=== PATIENT | male | born 1970 | race Caucasian/White ===

== ENCOUNTER → 2018-03-17 | Outpatient (CLI) | payer OTHER ==
[~2018-03-17] VITALS: Ht 182.9 cm; Wt 119.3 kg
[~2018-03-17] MED LIST: AMANTADINE100 M1 PO; ATENOLOL 25 MG25 M1 PO; CLONIDINE HCL0.1 MG PO; CYMBALTA30 MG PO; CYMBALTA60 MG PO; GABAPENTIN800 M1 PO; GRALISE600 MG PO; HYDROCODON-ACE1 EAC5 PO; LOSARTAN POTAS100 MG PO; METHADONE HCL 110 M1 PO; METHADONE HCL5 MG PO; NEURONTIN600 MG PO; NEURONTIN800 MG PO; NORCO 10-325 T1 EACH PO; PRILOSEC 20 MG20 MG PO; PRILOSEC20 MG PO; TIZANIDINE PO; XARELTO10 MG PO; ZANAFLEX4 MG PO; gabapentin PO
--- NOTE | ~2018-03-17 | HPC ---
[facility] [address] [address] PAIN MANAGEMENT CONSULTATION Name: PEDRO BRANTLEY Room #: REG CL M..#: [id number] Admission: 03/17/18 Attend Phys: Gage Brewster MD Discharge: Date of : 72 Report #: [id number] THIS REPORT FOR: //name// CC: Umair Brewster DATE OF SERVICE: 03/17/2018 Followup visit for chronic back pain with radiculopathy, post-laminectomy syndrome. History of 4 previous lumbar surgeries. The patient returns today for renewal of medication and a refill of his intrathecal infusion pump. He is on a substantial amount of medication and polypharmacy both orally and an intrathecal infusion pump. We have used his level of function as a guide and I have tried to make sure that we are prescribing his medication with close oversight. I shall admit that I am not comfortable with the higher doses of gabapentin that he is taking in combination with muscle relaxant and opioid, but he is highly tolerant after many years of medication use. He has an intrathecal pump, which also provides combination therapy with clonidine, hydromorphone and fentanyl at fixed rates. If we focus on his function level, I would say that the medication is achieving its goal. He continues to work 5-6 long days at the [employer] in [place], [place] on his feet much of that time. He then cares for his and his family with 5 children, 2 set of twins and a 17-year-old boy. He is actively involved at work and at home. He has had no evidence of overdose despite the high doses of medication provided. I have repeatedly discussed the importance of safeguarding his opioid medications and carefully managing his other medications. CURRENT MEDICATION: Losartan 100 mg daily, Xarelto 10 mg daily, tizanidine 4 mg 2 tablets t.i.d., gabapentin 1200 mg 4 times daily, Cymbalta 60 mg once daily, omeprazole 20 mg daily. ALLERGIES: None. PHYSICAL EXAMINATION: He is an outgoing pleasant 47-year-old. No signs of overmedication. He is wearing his usual flip flops and shorts. He ambulates with a broad-based, but stable gait. He is 6 feet tall, 263 pounds with a BMI of 35.7. At one time, he weighed nearly 400 pounds. He has carefully maintained his weight loss. His blood pressure is 112/53, heart rate 82. His chest is clear. His cardiac rhythm is regular. He has no abdominal pain. Examination of the spine reveals multiple scars from previous surgery with local tenderness. Range of motion is limited. Straight leg raising bilaterally reproduces pain into the legs. [facility] [address] [place] [address] PAIN MANAGEMENT CONSULTATION Name: VALERYPEDRO MG German [id number] Admission: 03/17/18 Attend Phys: Gage Brewster MD Discharge: Date of : 72 Report #: [id number] IMPRESSION: 1. Chronic intractable back pain, post-laminectomy syndrome with radiculopathy. 2. Morbid obesity, status post gastric bypass with weight loss of nearly 200 pounds. 3. Hypertension. 4. History of deep venous thrombosis, on anticoagulation therapy. 5. Management of high risk oral medications. 6. Management of intrathecal infusion pump with reprogramming and refill. PROCEDURE: The intrathecal pump was prepped and the skin plane cleaned. Skin was anesthetized and a 22-gauge non-coring needle advanced in the pump. Old medication removed and discarded by protocol. The pump was refilled with hydromorphone, clonidine and fentanyl and reprogramming session performed. His daily dose will be as follows: Hydromorphone 5.6, clonidine 450 mcg and fentanyl 223 mcg per day. He has a PTM device, which allows for 6 activations a day, increasing his maximum total daily dose of hydromorphone to 7.3. His next refill is scheduled for 04/21/2018, but with PTM, he may go further plan to see him probably around the to the 29 of April. We had a lengthy discussion today about his medications and his polypharmacy. Over time, I would like to reduce these medications. I would like to particularly reduce the polypharmacy component. Hopefully, we could get him off of the muscle relaxants and then taper his gabapentin. He has been very resistant to this in the past, calling frequently about complaints of increased pain at lower doses of gabapentin. He tells me that he is highly dependent upon the gabapentin for the neuropathic component of his pain. We found a much more stable path for the patient when we placed him on methadone. It has shown good benefit for him and he is under an opioid agreement to carefully safeguard this opioid medication, which he tolerates well. I have also agreed that rather than increasing his methadone when he is called that I have allowed him 2 hydrocodone per day over the course of 1-2 months if he feels that he cannot manage his pain effectively at the end of a long day. We will continue to focus on functional goals. I am in frequent contact with the patient. As many of my pump patients do, he has my phone number and I have allowed him to contact me directly rather than go to the Emergency Room if he has a pump crisis. He has avoided the Emergency Room and other medical interventions now for over 1 year, except for one occasion. Avoiding hospital contacts is also considered an important goal for his treatment. [facility] [address] [place] [address] PAIN MANAGEMENT CONSULTATION Name: PEDRO BRANTLEY Room #: REG CLI [facility].#: [id number] Admission: 03/17/18 Attend Phys: Gage Brewster MD Discharge: Date of : 72 Report #: [id number] A followup visit is scheduled in April. Time in consultation greater than 30 minutes plus refill of intrathecal infusion pump. By: [id number] Gage Brewster MD /nt
[2018-03-17 14:29] VITALS: BP 112/53
--- NOTE | 2018-03-17 14:52 | NUR ---
Pain Clinic Assessment: 1. History of Osteoarthritis: N History of Rheumatoid Arthritis: 2. Height: 6 ft. 0 in. 182.9 cm. Weight: 263.0 lb. oz. 119.296 kg. Patient's BMI: 35.7 3. Vital Signs: BP: 112/53 Pulse: 82 Resp: 16 Temp: 02 Sat: 97 ECG Mon: 4. Pain Intensity: 3-4 5. Fall Risk: Dizziness: N Needs help standing or walking: N Fallen in the last 3 months: N Fall risk comments: 6. Patient on Blood Thinner: None 7. History of Hypertension: N 8. Opioid Therapy greater than 6 weeks: Y Opiate Contract Signed: 03/17/18 9. Risk Assessment Tool Provided: Opioid Risk Tool 10. Functional Assessment Tool: 11. Recreational Drug Use: Never Drug Type: Tobacco Use: Former Smoker Tobacco Type: Amount or Packs/day: How Many Years: Alcohol Use: Past use Frequency: Quant:
== END | disposition home or self-care (01) ==
LOC: PAIN 07:40
DX: Z45.1 Encounter for adjustment and management of infusion pump (principal); G89.29 Other chronic pain; Z87.891 Personal history of nicotine dependence; Z79.891 Long term (current) use of opiate analgesic; Z79.899 Other long term (current) drug therapy; Z98.890 Other specified postprocedural states

== ENCOUNTER → 2018-04-17 | Outpatient (CLI) | payer OTHER ==
[~2018-04-17] VITALS: Ht 182.9 cm; Wt 123.1 kg
--- NOTE | ~2018-04-17 | HPC ---
[facility] [place] [address] PAIN MANAGEMENT CONSULTATION Name: PEDRO BRANTLEY Room #: REG CL M..#: [id number] Admission: 04/17/18 Attend Phys: Gage Brewster MD Discharge: Date of : 72 Report #: [id number] THIS REPORT FOR: //name// CC: Umair Brewster DATE OF SERVICE: 04/17/2018 Followup visit for chronic low back pain with radiculopathy, post-laminectomy syndrome. The patient is here today for refill of his intrathecal infusion pump and review of his medications. 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 As noted, he has a large extended family and nuclear family that he is also involved with on a daily basis. He fell on the ice, landing squarely on his back. He sustained a pretty good sized bruise directly overlying his scar. Apparently, he slipped getting into the step-up on his pickup truck. He could not have landed more squarely on his mid back. No other bruise is noted. He has had no significant changes in symptoms other than increased pain across his low back. He has been using ice as recommended by telephone. Intrathecal pump is infusing fixed rates of clonidine, hydromorphone and fentanyl and he has a PTM device, which he is allowed to use 6 times daily. He uses it nearly every opportunity. In addition to that, I have him on methadone for its neuropathic pain features. He is on 10 mg 3 times a day for 30 mg, which he has tolerated well. He has long history of opioid use for chronic pain and he is tolerant to his medications. He denies any sort of side effects, in fact functions at a much higher level with better pain control. His polypharmacy was addressed at last visit. Once again, I discussed with him my concerns when patients are on multiple centrally acting medications, but he tolerates it appears quite well. Dr. Lopez prescribes his gabapentin for him as well as all of his other medications other than the methadone, hydrocodone, tizanidine and Cymbalta, which I utilize for pain management. PHYSICAL EXAMINATION: Today, he is pleasant and outgoing as usual. No signs of overmedication or other illness. His blood pressure is 137/78, heart rate 56, his BMI 36.8. He moves easily from sitting to standing position and walks with a somewhat waddling gait side to side. He is in his usual short pants despite the fact that it is 13 degrees out with a wind chill of around -10. Examination of the back reveals a 12 x 20 bruise surrounding the scar and local tenderness. There is no increasing neuropathic pain. Pump is in the left lower back and does not appear to be affected by this fall. [facility] [address] [place] [address] PAIN MANAGEMENT CONSULTATION Name: PEDRO BRANTLEY Room #: REG JARED Alfredo#: [id number] Admission: 04/17/18 Attend Phys: Gage Brewster MD Discharge: Date of : 72 Report #: [id number] IMPRESSION: 1. Chronic back pain, post-laminectomy syndrome with radiculopathy. 2. Hypertension. 3. History of deep venous thrombosis, on anticoagulation therapy. 4. Hypertension. 5. Management of intrathecal infusion pump with reprogramming and refill today. 6. Management of high risk oral medications with polypharmacy. He is on an opioid agreement. I reviewed his responsibilities of managing his medications and taking them as prescribed. We will continue to follow him closely as his pump is refilled nearly every 6 weeks. PROCEDURE: The pump was refilled and reprogrammed in the usual fashion. Skin prepped with ChloraPrep and anesthetized. A 22-gauge non-coring needle advanced in the pump. Old medication removed and discarded. Pump refilled with hydromorphone 5.6 per day, clonidine 450 mcg per day and fentanyl 223 mcg per day with no change. PTM device will allow for about a 35% increase if he uses all 6 activations. All medications for oral use were renewed to carry him through to his next appointment with specific release dates for his opioids in May. Followup visit planned for pump refill prior to 05/23/2018. By: [id number] Gage Brewster MD /nt
[2018-04-17 11:02] VITALS: BP 137/78
--- NOTE | 2018-04-17 11:19 | NUR ---
Pain Clinic Assessment: 1. History of Osteoarthritis: N History of Rheumatoid Arthritis: 2. Height: 6 ft. 0 in. 182.9 cm. Weight: 271.4 lb. oz. 123.107 kg. Patient's BMI: 36.8 3. Vital Signs: BP: 137/78 Pulse: 56 Resp: 20 Temp: 02 Sat: 100 ECG Mon: 4. Pain Intensity: 7 5. Fall Risk: Dizziness: N Needs help standing or walking: N Fallen in the last 3 months: Y Fall risk comments: 6. Patient on Blood Thinner: XARELTO 7. History of Hypertension: N 8. Opioid Therapy greater than 6 weeks: Y Opiate Contract Signed: 03/17/18 9. Risk Assessment Tool Provided: Opioid Risk Tool 10. Functional Assessment Tool: 49 11. Recreational Drug Use: Never Drug Type: Tobacco Use: Former Smoker Tobacco Type: Amount or Packs/day: How Many Years: Alcohol Use: Past use Frequency: Quant:
== END | disposition home or self-care (01) ==
LOC: PAIN 08:20
DX: Z45.1 Encounter for adjustment and management of infusion pump (principal); M54.16 Radiculopathy, lumbar region; G89.29 Other chronic pain; M96.1 Postlaminectomy syndrome, not elsewhere classified; I10 Essential (primary) hypertension; Z79.891 Long term (current) use of opiate analgesic; Z86.718 Personal history of other venous thrombosis and embolism; Z79.01 Long term (current) use of anticoagulants; Z98.890 Other specified postprocedural states; Z79.899 Other long term (current) drug therapy; Z87.891 Personal history of nicotine dependence

== ENCOUNTER → 2018-05-22 | Outpatient (CLI) | payer OTHER ==
[~2018-05-22] VITALS: Ht 182.9 cm; Wt 126.0 kg
--- NOTE | ~2018-05-22 | HPC ---
[facility] [address] [place] [address] PAIN MANAGEMENT CONSULTATION Name: VALERYPEDRO MG [id number] Admission: 05/22/18 ������������������ Attend Phys: Gage Brewster MD Discharge: ������������������ Date of : 72 Report #: [id number] THIS REPORT FOR: //name// CC: UMAIR Brewster DATE OF SERVICE: 05/22/2018 Followup visit for chronic intractable pain, post-laminectomy syndrome. The patient is in the clinic today for refill of his intrathecal infusion pump. For the first time in the 2 years since I have been helping care for him. He was in tears in my office. I have seen him at times when he has been in the pain crisis. We had to admit him overnight to [facility] when his pain was completely out of control in the fall. He has recently complained of increasing pain. Swelling in his legs was diagnosed as cellulitis and he has been placed on antibiotic medication. He reports that his pain intensity is 8-9/10. He is in constant daily pain. Pain is in his back across the lumbosacral segment, radiates into both legs, which have been swollen related to his cellulitis. 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 He gets some relief with lying down with his legs propped up and he is on a very extensive polypharmacy regimen for chronic pain with extreme tolerance. PHYSICAL EXAMINATION: GENERAL: Today, he is crying. VITAL SIGNS: His blood pressure is 139/86, heart rate 70, respirations 18, O2 sat 100%. He is 6 feet tall, 277 pounds, BMI is 37.7. CHEST: Clear. CARDIAC: Rhythm is regular. MUSCULOSKELETAL: He moves from sitting to standing position and walks with a broad-based gait and antalgic features. He has a scar in his neck from previous cervical surgery, which is tender. He has a broad scar across his lumbosacral segment, which is tender to the touch. He has pain in all the way up to the upper edge of the scar which is at the thoracolumbar junction. There is no redness or inflammation or swelling across his lumbar scar. His pump is in his left lower back and is loose within the subcutaneous tissue. Examination of the legs reveals no evidence of redness or an active cellulitis. The swelling is diminished over the course of the last several days on antibiotics. He has diffuse tenderness throughout the lower extremities involving the L4, L5 and S1 dermatomes. He has positive straight leg raising discomfort through all dermatomes in the sitting and supine position. Sensation is intact. IMPRESSION: [facility] [address] [place] [address] PAIN MANAGEMENT CONSULTATION Name: PEDRO BRANTLEY Room #: REG JARED Alfredo#: [id number] Admission: 05/22/18 ������������������ Attend Phys: Gage Brewster MD Discharge: ������������������ Date of : 72 Report #: [id number] 1. Chronic intractable low back pain, post-laminectomy syndrome. 2. Complex polypharmacy regimen. 3. Cellulitis, lower extremities, under treatment. 4. Hypertension. 5. Management of intrathecal infusion pump with reprogramming and refill. 6. Refill and management of high risk oral medications. The patient has polypharmacy, receives medications from both myself and his primary care physician, Dr. Umair Lopez. PROCEDURE: Refill and reprogramming of intrathecal infusion pump. Skin was prepped with ChloraPrep. Skin anesthetized and a 22-gauge non-coring needle advanced in the intrathecal pump. Old medication was removed and discarded. Pump refilled with hydromorphone and reprogrammed. At his last visit, I increased his pump by 35% with only minimal improvement. His daily dose is hydromorphone 5.6 mg, clonidine 450 mcg and fentanyl 224 mcg per day. He has a PTM device, which will allow him to increase these doses by 31% over a 24-hour period. Next refill is scheduled for 06/26/2018. His oral medications that I provide are baseline methadone 10 mg t.i.d. for neuropathic pain, hydrocodone 10/325 mg 1-2 tablets at the end of the work day for breakthrough pain, tizanidine 4 mg 2 tablets q.i.d. for low back muscle spasm. Dr. Lopez has been prescribing gabapentin that the maximum dose of 4800 mg per day along with Cymbalta 60 mg once a day. All other medications are reconciled from the electronic medical record including omeprazole, Xarelto, oral clonidine, losartan. Recommendation today for flexion and extension in views of the lumbar spine. X-rays were taken and reviewed. There is no listhesis or excessive motion in the lumbar spine, but there is marked levoscoliosis of 34 degrees in the lumbar spine and a compensatory dextrorotational scoliosis in the thoracic. Evidence of laminectomy is noted. Degenerative changes throughout the lumbar spine. I do not have recent MRI and will review records from [facility]. I am at loss of what next steps to take with the patient, we are of maximum medical treatment. I have high doses of medications in his intrathecal pump. He is on oral medications for chronic pain. I have suggested that he pursue surgical consultation with Dr. Karimi or Dr. Amaro and also perhaps with Dr. Gomez, who performed his earlier surgery. I am uncertain about the potential benefits of surgical procedure. Fusion or stabilization of his lumbar spine is not always a pain relieving procedure. Our fear is that despite his significant pain at this time, he could potentially be worse following surgery. He will pursue consultations and I will try to help guide him going forward. ��������������������������������������������� ���������������������������������������� By: ��������������������������������������������� [id number] Gage Brewster MD /nt
[2018-05-22 11:08] VITALS: BP 139/86
--- NOTE | 2018-05-22 11:42 | NUR ---
Pain Clinic Assessment: 1. History of Osteoarthritis: N History of Rheumatoid Arthritis: 2. Height: 6 ft. 0 in. 182.9 cm. Weight: 277.8 lb. oz. 126.010 kg. Patient's BMI: 37.7 3. Vital Signs: BP: 139/86 Pulse: 70 Resp: 18 Temp: 02 Sat: 100 ECG Mon: 4. Pain Intensity: 8-9 5. Fall Risk: Dizziness: N Needs help standing or walking: N Fallen in the last 3 months: N Fall risk comments: 6. Patient on Blood Thinner: XARELTO 7. History of Hypertension: N 8. Opioid Therapy greater than 6 weeks: Y Opiate Contract Signed: 03/17/18 9. Risk Assessment Tool Provided: MOD RISK-6 10. Functional Assessment Tool: / 11. Recreational Drug Use: Never Drug Type: Tobacco Use: Former Smoker Tobacco Type: Amount or Packs/day: How Many Years: Alcohol Use: Past use Frequency: Quant:
== END | disposition home or self-care (01) ==
LOC: PAIN 06:58
DX: Z45.1 Encounter for adjustment and management of infusion pump (principal); M51.36 Other intervertebral disc degeneration, lumbar region; M54.5 Low back pain; G89.29 Other chronic pain; M96.1 Postlaminectomy syndrome, not elsewhere classified; L03.116 Cellulitis of left lower limb; L03.115 Cellulitis of right lower limb; I10 Essential (primary) hypertension; Z79.891 Long term (current) use of opiate analgesic; Z79.01 Long term (current) use of anticoagulants; Z87.891 Personal history of nicotine dependence; Z79.899 Other long term (current) drug therapy; Z98.890 Other specified postprocedural states

== ENCOUNTER → 2018-06-26 | Outpatient (CLI) | payer OTHER ==
[~2018-06-26] VITALS: Ht 182.9 cm; Wt 121.1 kg
[~2018-06-26] MED LIST changes: +ELIQUIS2.5 MG PO
--- NOTE | ~2018-06-26 | HPC ---
[facility] [address] [place] [address] PAIN MANAGEMENT CONSULTATION Name: PEDRO BRANTLEY Room #: REG CL M[facility].#: [id number] Admission: 06/26/18 ������������������ Attend Phys: Gage Brewster MD Discharge: ������������������ Date of : 72 Report #: [id number] THIS REPORT FOR: //name// CC: Umair Brewster DATE OF SERVICE: 06/26/2018 Followup visit for chronic intractable pain, post-laminectomy syndrome. The patient was in the Pain Clinic today for a 25-minute consultation visit, followed by a refill and reprogramming of his intrathecal infusion pump. I also renewed his chronic opioid medications and muscle relaxant, tizanidine. Much discussion today about living day-to-day with chronic pain. 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 He has been using medications to help manage his chronic pain for nearly 20 years. We have continued to provide a medication, but follow up on a very close basis to make sure that his medications are taken with purpose and not haphazardly. We have goals for the use of medication and they include continued work at the [employer] business and continued engagement with his family and younger children. He has a son who has recently graduated from high school, working with him in the business, twins who are finishing their software in high school and two kindergarten aged twins also, so he has number of years of childbearing have impaired. By his own admission, he is driven and feels shameful when he cannot continue at work. He is on his feet all day long and at the end of the day, he is pretty much done. 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 His family motivation is well documented throughout this record. We have discussed counseling. Finding a good counselor, someone he has trust with is difficult and I have served in that role for him in helping bereavement counselor him in measures of nonpharmacologic pain management including cognitive behavioral therapies and stress management. We discussed today a number of different strategies for this. He was given timed event. He was in tears at time talking about his concerns of being able to carry on the family work. Continue to describe his pain as deep, sharp, aching pain. It is not too bad day as a 5, although he periodically contacts me when the pain is severe. He understands that he has maximal medical management. We have no additional medicines that we would suggest for him. In fact, I would like to reduce his baseline medicines, so he has more room for further treatment if something serious should occur. We talked about planning, pacing and prioritizing at his work. He should be [facility] [address] [place] [address] PAIN MANAGEMENT CONSULTATION Name: PEDRO BRANTLEY Room #: REG CL Lizzie.#: [id number] Admission: 06/26/18 ������������������ Attend Phys: Gage Brewster MD Discharge: ������������������ Date of : 72 Report #: [id number] able to acknowledge to himself and to others around him that there are times when he must back away from his heavy work. We have talked about using heat, ice, rest, elevation in order to help with his other additional pains. PHYSICAL EXAMINATION: Today, once again his is emotional. He cried at last visit, cried a couple of times today, concerned about the stresses of his life. His blood pressure is 138/86, heart rate is 86, respirations 16, and O2 sat is 100. He has lost some weight. He was 177 at last visit, 167 today. BMI is now 36.2. His chest is clear. His cardiac rhythm is regular. He is able to independently move from sitting to standing position, walks with a waddling broad-based gait. There are antalgic features. Scar is tender across his low back. He has pain that also extends up into the thoracolumbar junction. His pump is in the left lumbar region, loose within the subcutaneous tissue. Cellulitis has improved within his legs and there is no active redness. Edema, which was present previously, seems to be better. He has diffuse discomfort throughout the legs involving all dermatomes L4 through S1. Bilateral straight leg raising discomfort. IMPRESSION: 1. Chronic low back pain, post-laminectomy syndrome. 2. Chronic stress disorder. He continues to remain engaged in activities of his life, however, should be commended for this. 3. Hypertension. 4. Cellulitis and deep venous thrombosis. He is on anticoagulation therapy. 5. Management of intrathecal infusion pump with reprogramming and refill. 6. Management of high risk oral medications for which we have made some adjustments today. PROCEDURE: Refill and reprogramming of intrathecal infusion pump. Skin was prepped with ChloraPrep and a 22-gauge non-coring needle advanced into the intrathecal pump. I aspirated 4.8 mL of old drug, which was disposed per protocol and the pump was then refilled with 19.5 mL of a combination of clonidine, fentanyl and hydromorphone. Programming remains unchanged. Current daily doses including maximal activations with PTM are 7.3 of hydromorphone, roughly 600 of clonidine, and fentanyl at roughly 300 mcg per day. His next refill is scheduled sometime in late July. His CYDNEY is 09/2019. We likely replace this pump in March to 05/2019. No change was made in his PTM device, which gives him additional 6 doses, which he can activate throughout the day. Medications renewed today under terms of our written opioid agreement are methadone 10 mg 3 times daily. I changed from 5 mg to 10 mg tablets. He has a small amount of hydrocodone 1-2 tablets, which he can take only for severe pain breakthrough. I have done this in order for him to avoid reaching out to the Emergency Room. I have renewed his tizanidine, but reduced the dose from 8 mg 4 times daily to [address] [address] PAIN MANAGEMENT CONSULTATION Name: PEDRO BRANTLEY Room #: REG [facility]..#: [id number] Admission: 06/26/18 ������������������ Attend Phys: Gage Brewster MD Discharge: ������������������ Date of : 72 Report #: [id number] mg 3 times daily, total of 180 tablets. We will continue to try and taper some of these medications as we educate further on chemical coping ways to try to move from that. Followup visit planned in July. ��������������������������������������������� ���������������������������������������� By: ��������������������������������������������� 0942 2221 Gage Brewster MD /nt
[2018-06-26 08:33] VITALS: BP 138/86
--- NOTE | 2018-06-26 08:38 | NUR ---
Pain Clinic Assessment: 1. History of Osteoarthritis: N History of Rheumatoid Arthritis: Not Applicable 2. Height: 6 ft. 0 in. 182.9 cm. Weight: 267.0 lb. oz. 121.111 kg. Patient's BMI: 36.2 3. Vital Signs: BP: 138/86 Pulse: 86 Resp: 16 Temp: 02 Sat: 100 ECG Mon: 4. Pain Intensity: 5 5. Fall Risk: Dizziness: N Needs help standing or walking: N Fallen in the last 3 months: N Fall risk comments: 6. Patient on Blood Thinner: eliquis 7. History of Hypertension: Y 8. Opioid Therapy greater than 6 weeks: Y Opiate Contract Signed: 03/17/18 9. Risk Assessment Tool Provided: MOD RISK-6 10. Functional Assessment Tool: 58/70 11. Recreational Drug Use: Never Drug Type: Tobacco Use: Former Smoker Tobacco Type: Amount or Packs/day: How Many Years: Alcohol Use: Past use Frequency: Quant:
== END | disposition home or self-care (01) ==
LOC: PAIN 06-23 07:01
DX: Z45.1 Encounter for adjustment and management of infusion pump (principal); G89.29 Other chronic pain; M54.5 Low back pain; M96.1 Postlaminectomy syndrome, not elsewhere classified; I10 Essential (primary) hypertension; F43.8 Other reactions to severe stress; Z86.718 Personal history of other venous thrombosis and embolism; Z79.01 Long term (current) use of anticoagulants; Z79.891 Long term (current) use of opiate analgesic; Z87.891 Personal history of nicotine dependence; Z79.899 Other long term (current) drug therapy

== ENCOUNTER → 2018-08-07 | Outpatient (CLI) | payer OTHER ==
[~2018-08-07] VITALS: Ht 175.3 cm; Wt 122.9 kg
[2018-08-07 09:14] VITALS: BP 132/88
--- NOTE | 2018-08-07 09:33 | NUR ---
Pain Clinic Assessment: 1. History of Osteoarthritis: N History of Rheumatoid Arthritis: Not Applicable 2. Height: 5 ft. 9 in. 175.3 cm. Weight: 271.0 lb. oz. 122.925 kg. Patient's BMI: 40.0 3. Vital Signs: BP: 132/88 Pulse: 64 Resp: 20 Temp: 02 Sat: 100 ECG Mon: 4. Pain Intensity: 5 5. Fall Risk: Dizziness: N Needs help standing or walking: N Fallen in the last 3 months: N Fall risk comments: 6. Patient on Blood Thinner: eliquis 7. History of Hypertension: Y 8. Opioid Therapy greater than 6 weeks: Y Opiate Contract Signed: 03/17/18 9. Risk Assessment Tool Provided: MOD RISK-6 10. Functional Assessment Tool: / 11. Recreational Drug Use: Never Drug Type: Tobacco Use: Former Smoker Tobacco Type: Amount or Packs/day: How Many Years: Alcohol Use: Past use Frequency: Quant:
--- NOTE | 2018-08-11 18:13 | HPC ---
[facility] [address] [address] PAIN MANAGEMENT CONSULTATION Name: PEDRO BRANTLEY [id number] Admission: 08/07/18 ������������������ Attend Phys: Gage Brewster MD Discharge: ������������������ Date of : 72 Report #: [id number] THIS REPORT FOR: //name// CC: Umair Brewster DATE OF SERVICE: 08/07/2018 CHIEF COMPLAINT: Followup visit for chronic intractable low back pain, post-laminectomy syndrome. HISTORY OF PRESENT ILLNESS: The patient was in the clinic today for refill of his intrathecal infusion pump. He looks pretty good today. He has had episodes over the last month and a half where he has really been in a lot of pain. Most of this is related to activity. 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 He has significant spinal pathology and I again discussed with him planning, pacing, prioritizing and consideration of a different type of work within the [employer]. No changes in his intrathecal medication. Our plan for today, he receives hydromorphone 5.6 mg per day, clonidine 450 mcg per day and fentanyl 223 mcg a day to allow him to use his PTM device. He can increase this by about 30% by using his PTM. In addition, I provided him with systemic medications, methadone. He is currently dosed at 10 mg 3 times daily in addition to hydrocodone, which he can take 1-2 times only in case of significant increased pain. I worry about opioid hyperalgesia of course. He has other co-analgesics including Cymbalta 60 mg daily, tizanidine 4 mg 2 tablets up to 4 times a day and gabapentin at high dose prescribed by Dr. Lopez. Despite this substantial centrally acting medication, he is able to function well on a daily basis, although he continually request additional medication. We have talked about the significant tolerance he has developed to the current medications and the lack of efficacy at any higher doses. PHYSICAL EXAMINATION: GENERAL: Today, he is well dressed, well groomed, upbeat and positive. Pain score 5/10. VITAL SIGNS: Blood pressure 132/88, heart rate 64, respirations 20, O2 sat 100, 5 feet 9 inches, 271 pounds, BMI of 40. MUSCULOSKELETAL: He moves from sitting to standing position, walks with his broad-based gait. He has pain and tenderness across his low back with limited range of motion. He complains of some pain in his legs. There is minimal edema bilaterally. As usual, he is wearing shorts and sandals. [place] [id number] PAIN MANAGEMENT CONSULTATION Name: PEDRO BRANTLEY Room #: REG [facility]#: [id number] Admission: 08/07/18 ������������������ Attend Phys: Gage Brewster MD Discharge: ������������������ Date of : 72 Report #: [id number] IMPRESSION: 1. Chronic low back pain, post-laminectomy syndrome. 2. Chronic stress disorder. 3. Hypertension. 4. Cellulitis, improved. 5. Management of intrathecal infusion pump with reprogramming refilled. 6. Management of oral medications under terms of written opioid agreement. We have discussed his responsibilities and safeguarding his medications. No current side effects need addressing. PROCEDURE: Skin was prepped with ChloraPrep and 22-gauge non-coring needle advanced in the pump. Old medication removed and discarded per protocol. Pump refilled then and reprogrammed at doses mentioned earlier in this dictation. I then represcribed for him medications, which will carry him through to his next pump refill including hydrocodone 10/325, #60 tablets. He has all other medications available at home for release prescriptions. Followup visit is planned in 09/2018. ��������������������������������������������� <ELECTRONICALLY SIGNED> ���������������������������������������� By: Gage Brewster MD ��������������������������������������������� 08/11/18 1813 1834 [id number] Gage Brewster MD /nt
== END | disposition home or self-care (01) ==
LOC: PAIN 06:40
DX: Z45.1 Encounter for adjustment and management of infusion pump (principal); M54.5 Low back pain; G89.29 Other chronic pain; M96.1 Postlaminectomy syndrome, not elsewhere classified; F43.8 Other reactions to severe stress; I10 Essential (primary) hypertension; Z79.891 Long term (current) use of opiate analgesic; Z87.891 Personal history of nicotine dependence; Z79.01 Long term (current) use of anticoagulants; Z79.899 Other long term (current) drug therapy

== ENCOUNTER → 2018-09-08 | Outpatient (CLI) | payer OTHER ==
[~2018-09-08] VITALS: Ht 175.3 cm; Wt 122.0 kg
[2018-09-08 11:37] VITALS: BP 101/71
== END | disposition home or self-care (01) ==
LOC: PAIN 11:06
DX: Z45.1 Encounter for adjustment and management of infusion pump (principal); M54.9 Dorsalgia, unspecified; G89.29 Other chronic pain; M96.1 Postlaminectomy syndrome, not elsewhere classified; I10 Essential (primary) hypertension; Z79.891 Long term (current) use of opiate analgesic; Z87.891 Personal history of nicotine dependence; Z79.01 Long term (current) use of anticoagulants; Z98.890 Other specified postprocedural states

== ENCOUNTER → 2018-09-25 | Outpatient (CLI) | payer OTHER ==
[~2018-09-25] VITALS: Ht 175.3 cm; Wt 125.2 kg
[2018-09-25 08:41] VITALS: BP 142/76
--- NOTE | 2018-09-25 08:44 | NUR ---
Pain Clinic Assessment: 1. History of Osteoarthritis: Not Applicable History of Rheumatoid Arthritis: Not Applicable 2. Height: 5 ft. 9 in. 175.3 cm. Weight: 276.0 lb. oz. 125.193 kg. Patient's BMI: 40.7 3. Vital Signs: BP: 142/76 Pulse: 63 Resp: 18 Temp: 02 Sat: 100 ECG Mon: 4. Pain Intensity: 4-5 BACK 6-7 HEAD 5. Fall Risk: Dizziness: N Needs help standing or walking: N Fallen in the last 3 months: N Fall risk comments: 6. Patient on Blood Thinner: mouna 7. History of Hypertension: Y 8. Opioid Therapy greater than 6 weeks: Y Opiate Contract Signed: 03/17/18 9. Risk Assessment Tool Provided: MOD RISK-6 10. Functional Assessment Tool: 58/70 11. Recreational Drug Use: Never Drug Type: Tobacco Use: Former Smoker Tobacco Type: Amount or Packs/day: How Many Years: Alcohol Use: Past use Frequency: Quant:
--- NOTE | 2018-09-26 07:46 | HPC ---
[facility] [address] [place] [address] PAIN MANAGEMENT CONSULTATION Name: PEDRO BRANTLEY [facility] [id number] Admission: 09/25/18 ������������������ Attend Phys: Veronica Shafer Discharge: ������������������ Date of : 72 Report #: [id number] THIS REPORT FOR: //name// CC: Veronica Brewster MD DATE OF SERVICE: 09/25/2018 CHIEF COMPLAINT:. Chronic intractable back pain, post-laminectomy syndrome. HISTORY OF PRESENT ILLNESS: This is a followup visit for this 47-year-old gentleman for refill of his medications that he uses to help treat his ongoing intractable back pain. He also does have an intrathecal pump that he uses to manage his pain as well. He is in need of his methadone and hydrocodone refill today prior to having his pump filled in the next few weeks. The patient tells me that his pain score today is a 4/5 in his back and a 6/7 in his head. He feels like he has a headache from the occipital area that radiates up to the top of his head to his temporal area. He tells me he usually does not get headaches, so he is unsure if it is back that is hurting or if it is the weather changes. 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 His medications are very helpful as well as elevating his legs as the day ends. The patient tells me he has no problems with constipation as long as he uses some ozph-zmu-iswbtlj remedies, and he does not have any feelings of overmedication feeling in his thought process. He tells me his PTM for his intrathecal pump alarm date says 10/14, and we will need to make an appointment for that as well. He does continue to have some right ankle swelling from a recent fall that he had at work that has been ongoing now for several weeks. ALLERGIES: No known drug allergies. CURRENT LIST OF MEDICATIONS: Hydrocodone 10/325 two to three times a day p.r.n., gabapentin 800 mg 4 times a day, tizanidine 4 mg 1-2 tablets p.r.n. daily, methadone 10 mg 3 times a day, Eliquis, Cymbalta 60 mg daily, losartan, clonidine, Prilosec PQRS: 1. 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 He denies [place] [address] PAIN MANAGEMENT CONSULTATION Name: PEDRO BRANTLEY Room #: REG [facility].#: [id number] Admission: 09/25/18 ������������������ Attend Phys: Veronica Shafer Discharge: ������������������ Date of : 72 Report #: [id number] 2. Height is 5 feet 9 inches, weight is 276, BMI is 40. 3. Vital signs, 142/76, pulse is 63, respirations 18, oxygen sat is 100. 4. Pain score in his back is 4-5 today, head is 6-7. 5. Fall risk. Denies dizziness. Does not need help of walking or standing. He has fallen in the last 3 months. 6. The patient is on Eliquis and also takes medicines for high blood pressure. 7. Opioid therapy is greater than 6 weeks; therefore, an opiate signed contract is on the chart. Risk assessment tool is moderate and functional assessment 58/70. 8. Recreational drug use, denies. Not a former smoker and does not use alcohol. According to the prescription monitoring system, the patient has been filling his methadone, sporadically filling prescriptions from March most recently, but has been filling his hydrocodone on a timely fashion. His last prescription for methadone was 08/28 and before that was 07/31. We discussed trying to keep him on track every 30 days, filling his long-acting and short-acting medications and is taking them in a timely fashion. PHYSICAL EXAMINATION: GENERAL: This is a well gentleman, 47-year-old that appears his stated age, placing his current pain score today at 4/5 of his lumbar spine. He is alert and orientated. HEENT: Normocephalic, atraumatic. Extraocular eye muscles are intact. Mucous membranes are moist. MUSCULOSKELETAL: He moves from sitting to standing position, walks with an antalgic gait. He has tenderness across his low back with limited range of motion, complains of some pain in his bilateral legs. He has edema noted in his right ankle and slight redness in the ankle area. IMPRESSION: 1. Chronic intractable back pain, post-laminectomy syndrome. 2. Hypertension. 3. Cellulitis of the right lower extremity. 4. Management of intrathecal pump with PTM use. We reviewed the fact that opiate medications are being used to provide analgesia adequate to support activities of daily living, not attempting to achieve a specific pain score on the 0-10 Visual Analog Scale. The current opiate medications are providing sufficient analgesia to allow the patient to participate in activities of daily living. The patient is not exhibiting any aberrant behavior suggestive of drug diversion. The patient is not having any adverse reactions to medications. The patient is not suffering from daytime somnolence or mental acuity changes. The patient is managing opiate-induced constipation with appropriate sxql-zex-zkzetgm agents and dietary considerations. The patient was counseled on concern for caution with operating a motor vehicle while using opiate medications. [facility] [address] [place] [address] PAIN MANAGEMENT CONSULTATION Name: PEDRO BRANTLEY [facility] [id number] Admission: 09/25/18 ������������������ Attend Phys: Veronica Shafer Discharge: ������������������ Date of : 72 Report #: [id number] A physical exam was performed and the patient's functional status was evaluated. All patients with back pain were advised against the bed rest greater than 4 days and were advised to return to normal activities. Pain score assessment was noted and the treatment plan was reviewed with the patient. All current medications, both prescribed and OTC were reviewed and reconciled on the electronic medical record. Tobacco screening was accomplished and smoking cessation was advised when indicated. BMI was noted and diet/exercise modification was recommended for all patients following outside normal parameters. I reviewed with the patient today their responsibilities to safeguard prescription medications, reviewed their responsibility to utilize medications only as prescribed by the physician. They are to seek and receive pain medications only from 1 physician group ([facility]). They are to use 1 pharmacy and keep the clinic informed if they change pharmacies. Their responsibilities include making followup visits in a timely fashion and to avoid abrupt discontinuation of medication usage. Their responsibilities further include bringing their medications (bottles from the pharmacy with residual pills) to the visit for possible confirmation of pill counts and the patient understands it is their responsibility to submit to random drug screens to ensure both that the medications prescribed are present, and that no other controlled substances are present. All prescriptions provided today were generated electronically. PLAN: 1. We discussed treatment options with the patient today. We explained the importance along with Dr. Brewstre who was present for significant amount of time of the visit today of taking his methadone on a schedule to keep his blood level at a constant level to help reduce some of his pain and to fill his prescriptions on a monthly basis. If he is finding he is not needing 3 methadone a day, then we will decrease the amount of pills that he does take. He is instructed to bring his bottles with him at the next appointment. 2. Script was given today for methadone 10 mg #90 and hydrocodone 10/325, #60 as well as tizanidine 4 mg 1-2 tablets t.i.d., #180 with 1 refill and Cymbalta 60 mg, #30 with one additional refill. 3. The patient continues to have right ankle pain and swelling. Does have slight cellulitis in the right lower extremity as well. We will have him have a right ankle series x-ray done today to see if anything is broken since his recent fall. 4. The patient is seen with Dr. Brewster who collaborated care today. The patient will return in about one month for his intrathecal pump refill. ��������������������������������������������� <ELECTRONICALLY SIGNED> ���������������������������������������� By: Veronica Shafer ��������������������������������������������� 09/26/18 0746 0957 [id number] Veronica Shafer /zen
== END ==
LOC: PAIN 08:26
DX: M19.071 Primary osteoarthritis, right ankle and foot (principal); M77.31 Calcaneal spur, right foot; M76.62 Achilles tendinitis, left leg; M25.471 Effusion, right ankle; G89.4 Chronic pain syndrome; M96.1 Postlaminectomy syndrome, not elsewhere classified; I10 Essential (primary) hypertension; L03.115 Cellulitis of right lower limb; Z79.899 Other long term (current) drug therapy; W19.XXXA Unspecified fall, initial encounter

== ENCOUNTER → 2018-10-13 | Outpatient (CLI) | payer OTHER ==
[~2018-10-13] VITALS: Ht 175.3 cm; Wt 123.7 kg
--- NOTE | ~2018-10-13 | HPC ---
[facility] [place] [address] PAIN MANAGEMENT CONSULTATION Name: PEDRO BRANTLEY Room #: REG CL Lizzie.#: [id number] Admission: 10/13/18 ������������������ Attend Phys: Gage Brewster MD Discharge: ������������������ Date of : 72 Report #: [id number] THIS REPORT FOR: //name// CC: HIRAL Brewster DATE OF SERVICE: 10/13/2018 Followup visit for chronic low back pain, post-laminectomy syndrome. Management of high risk polypharmacy medications as well as intrathecal infusion pump. The patient returns to pain clinic today for refill of his intrathecal infusion pump and renewal of some of his medication. He has an MME of oral medications of 140 based upon 3 methadone tablets per day, 10 mg for a total of 30. This equals an MME of 120 and hydrocodone 10/325 one to two tablets also taken generally during the day for severe pain. He is also on high dose gabapentin 4800 mg per day prescribed by Dr. Lopez. He is on Cymbalta 60 mg daily and tizanidine 4-8 mg 3-4 times daily. This is a significant amount of oral medication and I have discussed at length with him today. I would like him to taper and we continue to work on this. I have also stressed with him the importance of safeguarding his medicines and how we must make sure that all these medicines are accounted for carefully at each visit, came to my awareness today after looking at the [facility] prescription drug monitoring program that he has been filling up multiple pharmacies. I have told him that this is part of his opioid agreement to do fill all of his medications at the same pharmacy. He has agreed to do so. He complains today of pain in his back an average of 6/10. We have had a number of concerns, however, also about his feet. I ordered plain film x-rays of his feet and it shows that there is significant arthrosis throughout both feet. While the mortise of the bone appears to be intact, he has had some swelling and it is possible there could be a stress fracture. I had ordered an MRI, but he did not obtain the study despite multiple efforts and phone calls. He is young at 47 years of age. I am concerned obviously by the degree of degenerative changes I see in his feet as well as by the medication that he is taking orally. Lengthy discussion occurred today about taking care of himself. He continues to chew tobacco. I have tried to get him to stop. Discussed strategies to do so today. He needs to lose some weight. His BMI is 40. This also has been discussed at length, but weight loss is a challenge. 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 Without [facility] [address] [place] [address] PAIN MANAGEMENT CONSULTATION Name: PEDRO BRANTLEY Room #: REG CLI Juni#: [id number] Admission: 10/13/18 ������������������ Attend Phys: Gage Brewster MD Discharge: ������������������ Date of : 72 Report #: [id number] medication, he reports that he does not feel that he could work at all. The pain in his legs and the neuropathy is so severe that he says that he would get out of bed. I have not even mentioned to his intrathecal pump !. I managed the pump and he is here today for refill. The pump contains 3 medications; hydromorphone and fentanyl, which should be helpful for the PTM device as well as clonidine. His daily dose continuous is hydromorphone 5.5 mg, clonidine 450 mcg and fentanyl 223 mcg per day. He uses his PTM frequently. PHYSICAL EXAMINATION: GENERAL: He is wide awake, alert, oriented and pleasant. Remarkable given the amount of medication that he takes. VITAL SIGNS: His pupils are equal, round and reactive to light. His EOMs are intact. Mucous membranes are moist. CHEST: Clear to auscultation. CARDIAC: Rhythm is regular. There is no murmur. ABDOMEN: Soft. Nontender. There is no organomegaly. BACK: Examination of the spine reveals scar from previous surgery and his pump is in the left lower back just below the iliac crest. It is quite loose in his redundant skin. It is nontender. He has bilateral straight leg raising discomfort. He has decreased sensation throughout the lower extremities to touch. Both feet are markedly deformed. There is some diffuse tenderness. He has bilateral valgus deformity. Spurring is noted along the Achilles bilaterally. IMPRESSION: 1. Chronic intractable pain syndrome, multiple pain generators including post-laminectomy syndrome with radiculopathy, severe arthritis of the feet bilaterally and neuropathy. 2. Hypertension. 3. Management of intrathecal pump with refill reprogramming. 4. Management of high risk medications under terms of an opioid agreement. I reviewed his medications from the [facility] PDMP. He last filled his hydrocodone and methadone on 09/25/2018. I will write for 1 month. I have also renewed his tizanidine and encourage him to taper his dose. He will safeguard his medications. He is grateful for the pain relief and improvement in day-to-day function that he has and he denies any side effects. PROCEDURE: Refill and reprogramming intrathecal infusion pump. Skin prepped with ChloraPrep. A 22-gauge non-coring needle advanced into the pump. Old medication removed and discarded. The amount retrieved was as expected and was discarded per protocol. Pump was then refilled with a combination of hydromorphone, clonidine and fentanyl. Reprogramming session [facility] [address] [place] [address] PAIN MANAGEMENT CONSULTATION Name: PEDRO BRANTLEY [facility]#: [id number] Admission: 10/13/18 ������������������ Attend Phys: Gage Brewster MD Discharge: ������������������ Date of : 72 Report #: [id number] performed without increase. His next refill is scheduled in about 40 days. Followup visit planned in the pain clinic in 40 days. ��������������������������������������������� ���������������������������������������� By: ��������������������������������������������� 1307 [id number] Gage Brewster MD /nt
[2018-10-13 09:58] VITALS: BP 108/72
--- NOTE | 2018-10-13 10:23 | NUR ---
Pain Clinic Assessment: 1. History of Osteoarthritis: Not Applicable History of Rheumatoid Arthritis: Not Applicable 2. Height: 5 ft. 9 in. 175.3 cm. Weight: 272.6 lb. oz. 123.651 kg. Patient's BMI: 40.2 3. Vital Signs: BP: 108/72 Pulse: 65 Resp: 20 Temp: 02 Sat: 100 ECG Mon: 4. Pain Intensity: 6 avg 5. Fall Risk: Dizziness: N Needs help standing or walking: N Fallen in the last 3 months: N Fall risk comments: 6. Patient on Blood Thinner: RUT 7. History of Hypertension: Y 8. Opioid Therapy greater than 6 weeks: Y Opiate Contract Signed: 03/17/18 9. Risk Assessment Tool Provided: MOD RISK-6 10. Functional Assessment Tool: 11. Recreational Drug Use: Never Drug Type: Tobacco Use: Former Smoker Tobacco Type: Amount or Packs/day: How Many Years: Alcohol Use: Past use Frequency: Quant:
== END | disposition home or self-care (01) ==
LOC: PAIN 06:51
DX: Z45.1 Encounter for adjustment and management of infusion pump (principal); G89.4 Chronic pain syndrome; M54.16 Radiculopathy, lumbar region; M96.1 Postlaminectomy syndrome, not elsewhere classified; M19.071 Primary osteoarthritis, right ankle and foot; M19.072 Primary osteoarthritis, left ankle and foot; I10 Essential (primary) hypertension; Z79.891 Long term (current) use of opiate analgesic; Z98.890 Other specified postprocedural states; Z79.899 Other long term (current) drug therapy; Z79.01 Long term (current) use of anticoagulants

== ENCOUNTER → 2018-11-13 | Outpatient (CLI) | payer OTHER ==
[~2018-11-13] VITALS: Ht 182.9 cm; Wt 123.4 kg
[2018-11-13 13:36] VITALS: BP 130/70
--- NOTE | 2018-11-13 13:39 | NUR ---
Pain Clinic Assessment: 1. History of Osteoarthritis: Not Applicable History of Rheumatoid Arthritis: Not Applicable 2. Height: 6 ft. 0 in. 182.9 cm. Weight: 272.0 lb. oz. 123.379 kg. Patient's BMI: 36.9 3. Vital Signs: BP: 130/70 Pulse: 80 Resp: 16 Temp: 02 Sat: 98 ECG Mon: 4. Pain Intensity: 4-5 5. Fall Risk: Dizziness: N Needs help standing or walking: N Fallen in the last 3 months: N Fall risk comments: 6. Patient on Blood Thinner: CLAUDINEQUIS 7. History of Hypertension: Y 8. Opioid Therapy greater than 6 weeks: Y Opiate Contract Signed: 03/17/18 9. Risk Assessment Tool Provided: MOD RISK-6 10. Functional Assessment Tool: 11. Recreational Drug Use: Never Drug Type: Tobacco Use: Former Smoker Tobacco Type: Amount or Packs/day: How Many Years: Alcohol Use: Past use Frequency: Quant:
--- NOTE | 2018-11-17 12:57 | HPC ---
[facility] [address] [place] [address] PAIN MANAGEMENT CONSULTATION Name: PHILPEDRO SHERIFF [id number] Admission: 11/13/18 Attend Phys: Veronica Shafer Discharge: Date of : 72 Report #: [id number] THIS REPORT FOR: //name// CC: Veronica Block Jessica DATE OF SERVICE: 11/13/2018 CHIEF COMPLAINT: Chronic low back pain, post-laminectomy syndrome. HISTORY OF PRESENT ILLNESS: This is a 48-year-old gentleman who returns to the pain clinic today for a refill of his medications that he uses to help treat along with his intrathecal pump for his chronic low back pain from multiple back surgeries. He reports today that his pain score is a 4-5/10. He is needing refills of his medicine prior to his intrathecal pump refill next week. His pain is located in his lumbar spine and radiates down both of his legs and especially into his right ankle. It is a deep, dull, sharp, stabbing pain worse when he is walking and working and lifting, but better with his medications, and at the end of the day when he can elevate his legs. He denies any problems with constipation today or daytime sleepiness. He explains to me that he did fall asleep riding home from work the other day, but it was because he was exhausted from physically working so hard and not because of his medications. ALLERGIES: No known drug allergies. CURRENT LIST OF MEDICATIONS: Methadone 10 mg t.i.d., Cymbalta 60 mg daily, Zanaflex 4 mg 1-2 tablets 3 times a day, hydrocodone 10/325 b.i.d., gabapentin 800 mg 4 times a day, Eliquis 2.5 mg b.i.d., losartan 100 mg daily, clonidine 0.1 mg daily, and omeprazole 20 mg daily. PQRS: 1. He has osteoarthritis in his ankle and his lumbar spine. Denies any rheumatoid arthritis. 2. Height is 6 feet, weight is 272, BMI is 36. 3. Vital signs: Blood pressure 130/70, pulse is 80, respirations 16, oxygen sat is 98. 4. Pain score 4-5. 5. Denies dizziness, does not need help walking or standing, has not fallen in the last 3 months. 6. He is on Eliquis and also takes medicine for hypertension. 7. Opioid therapy is greater than 6 weeks; therefore, an opioid signed contract is on the chart. 8. Risk assessment is moderate. Functional assessment is 58/70. 9. Recreational drug use, he denies. He does chew tobacco and does not smoke. He has been encouraged to quit chewing tobacco and does not drink alcohol. [address] [address] PAIN MANAGEMENT CONSULTATION Name: PEDRO BRANTLEY Room #: REG CLI Juni#: [id number] Admission: 11/13/18 Attend Phys: Veronica Shafer Discharge: Date of : 72 Report #: [id number] According to the prescription monitoring system, the patient is not due to fill his medication of methadone until the . He is due for his hydrocodone today. PHYSICAL EXAMINATION: GENERAL: This is alert and orientated, 48-year-old gentleman, who appears his stated age, placing his current pain score today at 4-5. HEENT: Pupils are equal and reactive to light. Mucous membranes are moist. His EOMs are intact. ABDOMEN: Soft, nontender. BACK: He has diffuse tenderness. EXTREMITIES: His both feet are deformed. He has significant right ankle pain. Sprain is also noted on his Achilles bilaterally. He has an intrathecal pump in his left lower back just above his iliac crest. His lower extremity strength judged to be 5/5 in all major muscle groups. IMPRESSION: 1. Chronic intractable back pain, post-laminectomy syndrome. 2. Hypertension. 3. Management of intrathecal pump. 4. Management of high-risk medications and polypharmacy under terms of written opioid agreement. 5. Severe arthritis of his feet bilaterally. 6. Neuropathy. We reviewed the fact that opiate medications are being used to provide analgesia adequate to support activities of daily living, not attempting to achieve a specific pain score on the 0-10 Visual Analog Scale. The current opiate medications are providing sufficient analgesia to allow the patient to participate in activities of daily living. The patient is not exhibiting any aberrant behavior suggestive of drug diversion. The patient is not having any adverse reactions to medications. The patient is not suffering from daytime somnolence or mental acuity changes. The patient is managing opiate-induced constipation with appropriate [id number] agents and dietary considerations. The patient was counseled on concern for caution with operating a motor vehicle while using opiate medications. A physical exam was performed and the patient's functional status was evaluated. All patients with back pain were advised against the bed rest greater than 4 days and were advised to return to normal activities. Pain score assessment was noted and the treatment plan was reviewed with the patient. All current medications, both prescribed and OTC were reviewed and reconciled on the electronic medical record. Tobacco screening was accomplished and smoking cessation was advised when indicated. BMI was noted and diet/exercise modification was recommended for all patients following outside normal parameters. [address] [address] PAIN MANAGEMENT CONSULTATION Name: PEDRO BRANTLEY Room #: REG [facility]#: [id number] Admission: 11/13/18 Attend Phys: Veronica Shafer Discharge: Date of : 72 Report #: [id number] I reviewed with the patient today their responsibilities to safeguard prescription medications, reviewed their responsibility to utilize medications only as prescribed by the physician. They are to seek and receive pain medications only from 1 physician group ( [facility]). They are to use 1 pharmacy and keep the clinic informed if they change pharmacies. Their responsibilities include making followup visits in a timely fashion and to avoid abrupt discontinuation of medication usage. Their responsibilities further include bringing their medications (bottles from the pharmacy with residual pills) to the visit for possible confirmation of pill counts and the patient understands it is their responsibility to submit to random drug screens to ensure both that the medications prescribed are present, and that no other controlled substances are present. All prescriptions provided today were generated electronically. PLAN: 1. We discussed treatment options with the patient today. I explained to the patient that we are unable to release his methadone. It is still too early. The patient verbalizes understanding. Scripts given for methadone 10 mg t.i.d., #90 to release after 11/26/2018. Scripts given for his hydrocodone 10/325 b.i.d. to fill today. 2. We discussed his tizanidine. He explained to me that he takes 8 tablets a day. I explained again, which we have had multiple discussions that he is not allowed to take that much of his muscle relaxer, 1-2 tablets up to 6 tablets max a day. He verbalizes understanding. He said he will try to decrease this medicine again, quantity of 180 given with 1 additional refill as well as his Cymbalta 60 mg, #30 with 1 additional refill. 3. The patient explains us that he was working very hard prior to the Day weekend. 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 Dr. Gage Brewster came in for part of this discussion where we discussed with the patient planning, pacing, and prioritizing for his health, he needs to plan out his day of work pace himself, so he is not so exhausted. This may need trying to do some of his jobs while sitting down, which he has some pain relief rather than standing all day, so that at the end of the day, he is not trying to play catch up with his pain and prioritizing what he could do versus what other people in his business can do. The patient thought about this. 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 The patient verbalizes understanding and will think about and try to change his attitudes at work that he needs to have others help him with some of his responsibilities. 4. The patient will return next week for his intrathecal pump refill. The appointment was adjusted based on his data with PTM trying to get as long out of his refills as possible. 5. The patient is seen in collaboration today [address] [address] PAIN MANAGEMENT CONSULTATION Name: PEDRO BRANTLEY Room #: REG CL Juni#: [id number] Admission: 11/13/18 Attend Phys: Veronica Shafer Discharge: Date of : 72 Report #: [id number] Gage Brewster who, as we said, was here present for part of the discussion today. <ELECTRONICALLY SIGNED> By: Veronica Shafer 11/17/18 [id number] Veronica Shafer /zen
== END ==
LOC: PAIN 09:31
DX: M54.5 Low back pain (principal); G89.4 Chronic pain syndrome; M96.1 Postlaminectomy syndrome, not elsewhere classified; I10 Essential (primary) hypertension; M19.072 Primary osteoarthritis, left ankle and foot; M19.071 Primary osteoarthritis, right ankle and foot; G62.9 Polyneuropathy, unspecified; Z79.891 Long term (current) use of opiate analgesic; Z79.899 Other long term (current) drug therapy

== ENCOUNTER → 2018-11-20 | Outpatient (CLI) | payer OTHER ==
[~2018-11-20] VITALS: Ht 182.9 cm; Wt 121.3 kg
[2018-11-20 09:51] VITALS: BP 123/86
--- NOTE | 2018-11-20 09:55 | NUR ---
Pain Clinic Assessment: 1. History of Osteoarthritis: Not Applicable History of Rheumatoid Arthritis: Not Applicable 2. Height: 6 ft. 0 in. 182.9 cm. Weight: 267.4 lb. oz. 121.292 kg. Patient's BMI: 36.3 3. Vital Signs: BP: 123/86 Pulse: 67 Resp: 16 Temp: 02 Sat: 100 ECG Mon: 4. Pain Intensity: 4 5. Fall Risk: Dizziness: N Needs help standing or walking: N Fallen in the last 3 months: N Fall risk comments: 6. Patient on Blood Thinner: ELIQUIS 7. History of Hypertension: Y 8. Opioid Therapy greater than 6 weeks: Y Opiate Contract Signed: 03/17/18 9. Risk Assessment Tool Provided: MOD RISK-6 10. Functional Assessment Tool: 58/ 11. Recreational Drug Use: Never Drug Type: Tobacco Use: Former Smoker Tobacco Type: Amount or Packs/day: How Many Years: Alcohol Use: Past use Frequency: Quant:
== END | disposition home or self-care (01) ==
LOC: PAIN 09:09
DX: Z45.1 Encounter for adjustment and management of infusion pump (principal); G89.29 Other chronic pain; Z79.899 Other long term (current) drug therapy; Z79.891 Long term (current) use of opiate analgesic; Z79.01 Long term (current) use of anticoagulants

== ENCOUNTER → 2018-12-25 | Outpatient (CLI) | payer OTHER ==
[~2018-12-25] VITALS: Ht 185.4 cm; Wt 106.6 kg
--- NOTE | ~2018-12-25 | HPC ---
[facility] [address] [place] [address] PAIN MANAGEMENT CONSULTATION Name: PEDRO BRANTLEY [facility] [id number] Admission: 12/25/18 Attend Phys: Gage Brewster MD Discharge: Date of : 72 Report #: [id number] THIS REPORT FOR: //name// CC: Umair Brewster DATE OF SERVICE: 12/25/2018 Followup visit for management of intrathecal infusion pump and oral medication for chronic intractable pain. SUBJECTIVE: The patient returns to pain clinic today for refill of his intrathecal infusion pump. 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 I have never seen a moment when he is at rest. He is here today reporting that he is getting by, although he is anxious about the upcoming . 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 I have encouraged him to continue to work to try and limit his weightbearing and lifting activities, which worsen his back pain. I talked to him about Wellness. He needs to continue to decrease his reliance on chewing tobacco, with which he has an addiction. Overall, he seems to be at a reasonably stable state. He continues to be highly functional on his job, more so than I would like. PHYSICAL EXAMINATION: VITAL SIGNS: Blood pressure 134/83, heart rate 84, respirations 16. GENERAL: He is pleasant, alert and oriented with no signs of depression, anxiety or overmedication. CHEST: Clear. CARDIAC: Rhythm is regular. BACK: His back is tender across the scar. He has pain that radiates from his back down into his legs. EXTREMITIES: He has diffuse tenderness of the joints of the lower extremity where we have x-ray evidence of diffuse osteoarthritis involving feet, knees and hips. IMPRESSION: 1. Chronic intractable back pain, post-laminectomy syndrome. 2. Diffuse osteoarthritis. 3. Management of intrathecal infusion pump with refill and reprogramming. [facility] [address] [place] [address] PAIN MANAGEMENT CONSULTATION Name: PEDRO BRANTLEY Room #: REG [facility]#: [id number] Admission: 12/25/18 Attend Phys: Gage Brewster MD Discharge: Date of : 72 Report #: [id number] 4. Management of high risk medications under terms of written opioid agreement. 5. History of hypertension. 6. Chronic neuropathic pain. PROCEDURE: Skin was prepped with ChloraPrep. A 22-gauge non-coring needle advanced in the pump. Old medication removed and discarded per protocol. Pump refilled with fentanyl, hydromorphone and clonidine. Reprogramming session was performed and copies provided to the patient. PLAN: 1. Refill reprogramming of intrathecal infusion pump. 2. Renewal of medications under terms of a written agreement. His current daily use of opioids is limited to methadone 10 mg 3 times daily and hydrocodone, no more than 40-60 tablets per month for breakthrough pain when the pain is most severe. He will continue on his nonopioid medications as well as Cymbalta 60 mg daily, tizanidine 4 mg 1-2 as needed for muscle spasm. Next scheduled appointment is in January. By: [id number] [id number] Gage Brewster MD /nt
[2018-12-25 12:05] VITALS: BP 134/83
--- NOTE | 2018-12-25 12:12 | NUR ---
Pain Clinic Assessment: 1. History of Osteoarthritis: Not Applicable History of Rheumatoid Arthritis: Not Applicable 2. Height: 6 ft. 1 in. 185.4 cm. Weight: 235.0 lb. oz. 106.596 kg. Patient's BMI: 31.0 3. Vital Signs: BP: 134/83 Pulse: 84 Resp: 16 Temp: 02 Sat: 98 ECG Mon: 4. Pain Intensity: 5-7 VARIES ACTIVITY 5. Fall Risk: Dizziness: N Needs help standing or walking: N Fallen in the last 3 months: N Fall risk comments: 6. Patient on Blood Thinner: RUT 7. History of Hypertension: Y 8. Opioid Therapy greater than 6 weeks: Y Opiate Contract Signed: 03/17/18 9. Risk Assessment Tool Provided: MOD RISK-6 10. Functional Assessment Tool: 58/ 11. Recreational Drug Use: Never Drug Type: Tobacco Use: Former Smoker Tobacco Type: Amount or Packs/day: How Many Years: Alcohol Use: Past use Frequency: Quant:
== END | disposition home or self-care (01) ==
LOC: PAIN 06:55
DX: Z45.1 Encounter for adjustment and management of infusion pump (principal); G89.29 Other chronic pain; M54.5 Low back pain; M96.1 Postlaminectomy syndrome, not elsewhere classified; I10 Essential (primary) hypertension; M19.90 Unspecified osteoarthritis, unspecified site; Z79.899 Other long term (current) drug therapy; Z79.891 Long term (current) use of opiate analgesic; Z87.891 Personal history of nicotine dependence; Z79.01 Long term (current) use of anticoagulants

== ENCOUNTER → 2019-01-08 | Outpatient (CLI) | payer OTHER ==
[~2019-01-08] VITALS: Ht 185.4 cm; Wt 107.0 kg
[2019-01-08 12:32] VITALS: BP 139/85
--- NOTE | 2019-01-08 12:35 | NUR ---
Pain Clinic Assessment: 1. History of Osteoarthritis: SPINE KNEES ANKLE History of Rheumatoid Arthritis: DENIES 2. Height: 6 ft. 1 in. 185.4 cm. Weight: 236.0 lb. oz. 107.049 kg. Patient's BMI: 31.1 3. Vital Signs: BP: 139/85 Pulse: 76 Resp: 16 Temp: 02 Sat: 98 ECG Mon: 4. Pain Intensity: 6 5. Fall Risk: Dizziness: N Needs help standing or walking: N Fallen in the last 3 months: N Fall risk comments: 6. Patient on Blood Thinner: NONE 7. History of Hypertension: Y 8. Opioid Therapy greater than 6 weeks: Y Opiate Contract Signed: 03/17/18 9. Risk Assessment Tool Provided: MOD RISK-6 10. Functional Assessment Tool: 58/ 11. Recreational Drug Use: Never Drug Type: Tobacco Use: Former Smoker Tobacco Type: Amount or Packs/day: How Many Years: Alcohol Use: Past use Frequency: Quant:
--- NOTE | 2019-01-09 10:58 | HPC ---
[facility] [address] [place] [address] PAIN MANAGEMENT CONSULTATION Name: PEDRO BRANTLEY Room #: REG [facility].#: [id number] Admission: 01/08/19 Attend Phys: Veronica Shafer Discharge: Date of : 72 Report #: [id number] THIS REPORT FOR: //name// CC: Veronica Brewster MD DATE OF SERVICE: 01/08/2019 CHIEF COMPLAINT: Chronic low back pain, post-laminectomy syndrome, management of high-risk opioid medication intrathecal pump. HISTORY OF PRESENT ILLNESS: This is a 48-year-old gentleman who returned to the pain clinic today for refill of his methadone. He reports that he is out of this medication and is needing a new one. He does have a prescription per our records that is dated to be released, but he is unable to find that prescription. He is not out of his hydrocodone. He is not due for that for 2 weeks and he does have a prescription in his possession to fill that medication in 2 weeks. Today, he is rating his pain at a 6/10. He ran out of his methadone 2 days ago. He has been taking his hydrocodone. He reports significant pain in his lower back, bilateral legs, and right ankle. 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 It is also becoming his busy season of the holidays and deer hunting, so he feels that he does need to have his prescriptions refilled today. He does tell me that his pain is better with his medication as well as lying down and elevating his legs. He denies problems with constipation. ALLERGIES: No known drug allergies. CURRENT LIST OF MEDICATIONS: Hydrocodone 10/325 b.i.d. p.r.n., methadone 10 mg t.i.d., Cymbalta 60 mg daily, Zanaflex 4 mg 1-2 tablets 3 times a day, #6 total max, gabapentin 800 mg 4 times a day, losartan 100 mg daily, clonidine 0.1 mg t.i.d., and omeprazole 40 mg daily. PQRS: 1. He has osteoarthritis in his spine, knees, and ankle. Denies any rheumatoid arthritis. 2. Height is 6 feet 1 inch, weight is 236, BMI is 31. 3. Vital signs, blood pressure 139/85, pulse is 76, respirations 16, oxygen sat is 98. 4. Pain score is 6/10. 5. Denies dizziness, does not need help walking or standing, has not fallen in the last 3 months. 6. The patient is not on any blood thinners, but does take medicine for [facility] [address] [place] [address] PAIN MANAGEMENT CONSULTATION Name: PEDRO BRANTLEY Room #: REG [facility]#: [id number] Admission: 01/08/19 Attend Phys: Veronica Shafer Discharge: Date of : 72 Report #: [id number] hypertension. 7. Opioid therapy is greater than 6 weeks; therefore, an opiate signed contract is on the chart. Risk assessment is moderate. Functional assessment is 58/70. 8. Recreational drug use, he denies. He is a former smoker and does not use alcohol. We took an extensive look at his prescription monitoring system and the prescriptions that we have written and when they were filled. Per the patient, most months he is on schedule for his fills in relation to his prescriptions, there are other months that he is completely off with old prescriptions filling in appropriate time. He seems to be filling appropriately once a month though for his methadone and hydrocodone. He has missing prescriptions, that he is unable to locate, and we have destroyed several prescriptions. Dr Brewster is not making him fill out a police report. He is only filling narcotics from Dr. Gage Brewster and using one [facility] pharmacy. PHYSICAL EXAMINATION: GENERAL: This is a pleasant, alert, orientated 48-year-old gentleman who appears not to be overmedicated. He is alert and orientated, placing his current pain score at 6/10. HEENT: Normocephalic, atraumatic. Extraocular eye muscles are intact. Mucous membranes are moist. MUSCULOSKELETAL: He moves independently from sitting to standing position, walks with a broad antalgic gait. He has tenderness across his lumbosacral segment and has reduced range of motion from previous surgeries. He has an intrathecal pump in his lower left back below the ribcage. He has swelling in his right ankle of 1+. IMPRESSION: 1. Chronic intractable back pain, post-laminectomy syndrome. 2. Management of intrathecal pump with the use of PTM. 3. Management of high risk medications including opioids and polypharmacy. 4. Hypertension. 5. Multiple joint osteoarthritis of the foot and ankle bilaterally as well as spine. 6. Chronic neuropathic pain. We reviewed the fact that opiate medications are being used to provide analgesia adequate to support activities of daily living, not attempting to achieve a specific pain score on the 0-10 Visual Analog Scale. The current opiate medications are providing sufficient analgesia to allow the patient to participate in activities of daily living. The patient is not exhibiting any aberrant behavior suggestive of drug diversion. The patient is not having any adverse reactions to medications. The patient is not suffering from daytime somnolence or mental acuity changes. The patient is managing opiate-induced constipation with appropriate [id number] agents and dietary [facility] [address] [place] [address] PAIN MANAGEMENT CONSULTATION Name: PEDRO BRANTLEY [facility] [id number] Admission: 01/08/19 Attend Phys: Veronica Shafer Discharge: Date of : 72 Report #: [id number] considerations. The patient was counseled on concern for caution with operating a motor vehicle while using opiate medications. A physical exam was performed and the patient's functional status was evaluated. All patients with back pain were advised against the bed rest greater than 4 days and were advised to return to normal activities. Pain score assessment was noted and the treatment plan was reviewed with the patient. All current medications, both prescribed and OTC were reviewed and reconciled on the electronic medical record. Tobacco screening was accomplished and smoking cessation was advised when indicated. BMI was noted and diet/exercise modification was recommended for all patients following outside normal parameters. I reviewed with the patient today their responsibilities to safeguard prescription medications, reviewed their responsibility to utilize medications only as prescribed by the physician. They are to seek and receive pain medications only from 1 physician group ([facility]). They are to use 1 pharmacy and keep the clinic informed if they change pharmacies. Their responsibilities include making followup visits in a timely fashion and to avoid abrupt discontinuation of medication usage. Their responsibilities further include bringing their medications (bottles from the pharmacy with residual pills) to the visit for possible confirmation of pill counts and the patient understands it is their responsibility to submit to random drug screens to ensure both that the medications prescribed are present, and that no other controlled substances are present. All prescriptions provided today were generated electronically. PLAN: 1. We discussed treatment options with the patient today. We have done an extensive review of his medications via his chart. We have called [facility]. We have looked at the prescription monitoring systems in [place] and [place] trying to determine when he filled his prescriptions and comparing them with the date written, the date filled. After much discussion and some variances in these, the mostly on a 30-day fill, it was elected to give the patient one month prescriptions at a time, the patient to picker feeder here in the office every 28-30 days. No prescriptions will be released early or will not have release dates written on them. The patient is agreeable with this plan of care. He knows he is not overtaking his medications, but he is not able to find them in a timely fashion; therefore, they are not being filled correctly. 2. Scripts given today for methadone 10 mg t.i.d., #90 with no additional refills. 3. The patient does have hydrocodone in his possession still at home; when he comes for his appointment for his intrathecal refill in 2 weeks, he is instructed to bring all of his pill bottles, any prescriptions he has at home with him to the appointment. He is not to have any extra pills left at home. He is to bring everything to his appointment. He verbalizes understanding. [address] [address] PAIN MANAGEMENT CONSULTATION Name: PEDRO BRANTLEY Room #: REG CLI Juni#: [id number] Admission: 01/08/19 Attend Phys: Veronica Shafer Discharge: Date of : 72 Report #: [id number] 4. Scripts given today also for tizanidine 4 mg 1-2 t.i.d., #180 with one additional refill and Cymbalta 60 mg, #30 with one additional refill. 5. The patient's morphine milliequivalent according to the CDC guidelines is 140 on 1 conversion or if you convert methadone x 8 according to the CDC is 280 plus his intrathecal pump. 6. The patient is seen with Dr. Brewster, who collaborated in care today and spent a significant amount of time also with him in therapy. We did also discuss Wellbeing and Wellness, encourage him to decrease his tobacco use, encouraging him to rest, take timeout for himself to exercise, relax away from work. The patient verbalizes understanding. <ELECTRONICALLY SIGNED> By: Veronica Shafer 01/09/19 1058 [id number] Veronica Shafer /nt
== END ==
LOC: PAIN 08:31
DX: Z76.0 Encounter for issue of repeat prescription (principal); M96.1 Postlaminectomy syndrome, not elsewhere classified; I10 Essential (primary) hypertension; Z79.899 Other long term (current) drug therapy; Z79.891 Long term (current) use of opiate analgesic

== ENCOUNTER → 2019-02-02 | Outpatient (CLI) | payer OTHER ==
[~2019-02-02] VITALS: Ht 182.9 cm; Wt 126.6 kg
[2019-02-02 09:38] VITALS: BP 145/89
--- NOTE | 2019-02-02 09:39 | NUR ---
Pain Clinic Assessment: 1. History of Osteoarthritis: SPINE KNEES ANKLE History of Rheumatoid Arthritis: DENIES 2. Height: 6 ft. 0 in. 182.9 cm. Weight: 279.0 lb. oz. 126.554 kg. Patient's BMI: 37.8 3. Vital Signs: BP: 145/89 Pulse: 76 Resp: 16 Temp: 02 Sat: 100 ECG Mon: 4. Pain Intensity: 5 5. Fall Risk: Dizziness: N Needs help standing or walking: N Fallen in the last 3 months: N Fall risk comments: 6. Patient on Blood Thinner: NONE 7. History of Hypertension: Y 8. Opioid Therapy greater than 6 weeks: Y Opiate Contract Signed: 03/17/18 9. Risk Assessment Tool Provided: MOD RISK-6 10. Functional Assessment Tool: / 11. Recreational Drug Use: Never Drug Type: Tobacco Use: Former Smoker Tobacco Type: Amount or Packs/day: chews tob. How Many Years: Alcohol Use: Past use Frequency: Quant:
== END | disposition home or self-care (01) ==
LOC: PAIN 06:41
DX: Z45.1 Encounter for adjustment and management of infusion pump (principal); G89.29 Other chronic pain; M96.1 Postlaminectomy syndrome, not elsewhere classified; M19.90 Unspecified osteoarthritis, unspecified site; Z79.899 Other long term (current) drug therapy; Z87.891 Personal history of nicotine dependence

== ENCOUNTER → 2019-03-02 | Outpatient (CLI) | payer OTHER ==
[~2019-03-02] VITALS: Ht 182.9 cm; Wt 125.0 kg
[2019-03-02 09:26] VITALS: BP 124/69
--- NOTE | 2019-03-02 09:41 | NUR ---
Pain Clinic Assessment: 1. History of Osteoarthritis: SPINE KNEES ANKLE History of Rheumatoid Arthritis: DENIES 2. Height: 6 ft. 0 in. 182.9 cm. Weight: 275.6 lb. oz. 125.012 kg. Patient's BMI: 37.4 3. Vital Signs: BP: 124/69 Pulse: 64 Resp: 18 Temp: 02 Sat: 98 ECG Mon: 4. Pain Intensity: 6 5. Fall Risk: Dizziness: N Needs help standing or walking: N Fallen in the last 3 months: N Fall risk comments: 6. Patient on Blood Thinner: *xARELTO 7. History of Hypertension: Y 8. Opioid Therapy greater than 6 weeks: Y Opiate Contract Signed: 03/17/18 9. Risk Assessment Tool Provided: MOD RISK-6 10. Functional Assessment Tool: 11. Recreational Drug Use: Never Drug Type: Tobacco Use: Current Some Day Smoker Tobacco Type: Chewing Tobacco Amount or Packs/day: How Many Years: Alcohol Use: Yes Frequency: Special Occasions Quant: "SELDOM"
--- NOTE | 2019-03-09 12:21 | HPC ---
[facility] [place] [address] PAIN MANAGEMENT CONSULTATION Name: VALERYPEDRO MG Room #: REG CL M.R.#: [id number] Admission: 03/02/19 Attend Phys: Gage Brewster MD Discharge: Date of : 72 Report #: [id number] THIS REPORT FOR: //name// CC: HIRAL Brewster DATE OF SERVICE: 03/02/2019 The patient returns to pain clinic today for refill of his intrathecal pump. He will also need a pump replacement some time in the next 6 months. We discussed referral to Dr. Karimi for that purpose and the referral papers were sent along. The patient has respected my request to text me less frequently. I have been in less communication with him for that reason over the last 2-3 weeks. He reports that work has been difficult at the [employer] that has been in his family for many generations. 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 We are nearly through , which was something he was afraid of. It is one of the busiest times of the year, including those months between December and February which include the holidays, giving and Janel and they were very active. He hopes to have some break in his schedule after tomorrow evening. His pump continues to be effective in providing a combination of hydromorphone and fentanyl at relatively high doses along with clonidine. 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 I have allowed him to break his dose up, although the pharmacology suggests he does not need to. He still is limited to 30 mg of methadone a day, which he uses consistently. We have been slowly tapering his use of hydrocodone. I did provide him with 1 additional prescription to fill and it will be released today at his pickup. It is for [address] Lopez provides prescriptions as well as primary care physician and he is taking the maximum 4800 mg per day of gabapentin. His polypharmacy also includes tizanidine 4 mg, which he takes 3 times daily. Cymbalta 60 mg is provided for moods and for chronic pain benefits. We have talked on many occasions about trying to limit oral medications and also to pace himself throughout his very difficult physical job. 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 He has lost a substantial amount of weight over the years, but remains overweight and uses tobacco in the form of chewing tobacco. I have counseled him about the use of this as well. PHYSICAL EXAMINATION: VITAL SIGNS: Blood pressure 124/69, heart rate 64, respirations 18. He is [address] [place] [address] PAIN MANAGEMENT CONSULTATION Name: PEDRO BRANTLEY Room #: REG [facility] Juni#: [id number] Admission: 03/02/19 Attend Phys: Gage Brewster MD Discharge: Date of : 72 Report #: [id number] feet tall, 275 with a BMI of 37.4. CHEST: Clear. CARDIAC: Rhythm is regular. ABDOMEN: Soft. He has some loose hanging skin in the back around the pump. Pump is in the left flank and mobile. EXTREMITIES: He has pain in both legs. Tenderness in both feet due to significant multi-joint small joint arthritis. IMPRESSION: 1. Severe chronic pain syndrome with multiple pain generators including chronic back pain with post-laminectomy syndrome. 2. Diffuse lower extremity osteoarthritis, most prominent in the feet. 3. Polypharmacy. I counseled him each visit. Methadone has stabilized his oral opioid use. We will continue to try and limit his use of hydrocodone. 4. Intrathecal pump management with refill and reprogramming. PROCEDURE: After informed consent, he was prepped with ChloraPrep along the pump. A 22-gauge non-coring needle advanced in the intrathecal pump and medication removed and discarded per protocol. I refilled the pump with 20 mL of his combination solution and a reprogramming session was performed. His current daily dose was increased at last visit. We left it the same today; 6.2 mg of hydromorphone, 253 mcg of fentanyl, 507 mcg of clonidine. Next refill is scheduled for April. We hope to have his pump replaced prior to then. I have recommended a 40 mL pump. Prior to prescribing his medication today, prescription drug monitoring program information was reviewed. Urine drug screens will be performed at my discretion. <ELECTRONICALLY SIGNED> By: Gage Brewster MD 03/09/19 1221 [id number] Gage Brewster MD /nt
== END | disposition home or self-care (01) ==
LOC: PAIN 06:46
DX: Z45.1 Encounter for adjustment and management of infusion pump (principal); G89.4 Chronic pain syndrome; M96.1 Postlaminectomy syndrome, not elsewhere classified; M19.90 Unspecified osteoarthritis, unspecified site; E66.3 Overweight; F17.220 Nicotine dependence, chewing tobacco, uncomplicated; Z98.890 Other specified postprocedural states; Z79.891 Long term (current) use of opiate analgesic; Z79.899 Other long term (current) drug therapy; Z68.37 Body mass index [BMI] 37.0-37.9, adult

== ENCOUNTER → 2019-03-20 | Outpatient (CLI) | payer OTHER ==
[~2019-03-20] VITALS: Ht 185.4 cm; Wt 127.2 kg
--- NOTE | ~2019-03-20 | HPC ---
[facility] [place] [address] PAIN MANAGEMENT CONSULTATION Name: [facility]EDRO BRANTLEY [id number] Admission: 03/20/19 Attend Phys: Gage Brewster MD Discharge: Date of : 72 Report #: [id number] THIS REPORT FOR: //name// CC: Umair Brewster DATE OF SERVICE: 03/20/2019 Followup visit for last destroyed prescription. The patient is in the clinic today with a partial bottle of pills that apparently was run through the washing machine. We examined the substance and the damaged pills and wasted them in the clinic per our protocol. Narcotic disposal is part of the patient's permanent record. We renewed another prescription for him to cover the 11 days until he can refill his next prescription. He is on an opioid agreement. His management is tight. We see him once a month. He has a history of opioid use disorder and has been in rehab in the past. He has an intrathecal pump. He is on methadone which has been very effective and helpful for him, but needs to be tightly monitored. He takes 30 mg a day. I did have to remind him that my cell phone, which has been given to him as a way of contacting me for emergency situations with his intrathecal pump, should not be abused. He has been using it for routine medical questions and even to establish an appointment in my office. After he texted me 24 times in a period of 1 week, I told him I would no longer respond to his texts. He nonetheless continues to text me and I am not responding. I told him I will not respond. If he has clinical questions, he must communicate with the office. I have always been friendly with patient and find him to be a friend. We have a good relationship, but we also have professional relationship as well. I am providing with a very controversial medication in controversial circumstance. 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 Urine drug screen was performed today. We discussed this as a red flag. He should lock his medicines. He should not carry them around with him. He should treat them as though they are valuable commodities like money and they should not in any way allowed in to be sent to the washing machine. We will continue to follow up in 1-month intervals and I will continue to manage his intrathecal pump, which has also been a helpful tool. [address] [address] PAIN MANAGEMENT CONSULTATION Name: PEDRO BRANTLEY Room #: REG CLI [facility]#: [id number] Admission: 03/20/19 Attend Phys: Gage Breswter MD Discharge: Date of : 72 Report #: [id number] We discussed his legs today, which seem quite a bit better to me! There is less swelling, less erythema. His feet are less tender. I suspect he may have had a compression fracture or stress fracture of some sort that has now healed. He did not get the CT that I ordered. PHYSICAL EXAMINATION: VITAL SIGNS: He is 6 feet 1 inch, 280 pounds, BMI 37. Blood pressure 120/74, heart rate 60, respirations 20, O2 sat 97. Pain intensity is 5/10. GENERAL: He moves independently, but walks with mild antalgic features. He has kind of a waddling gait, which is normal. There is tenderness across his pump in his back, which is normal for him. IMPRESSION: 1. Chronic intractable back pain, post-laminectomy syndrome. 2. Management of high risk medications under terms of written opioid agreement. 3. History of opioid use disorder with red flag behavior with destroyed prescription. 4. Bilateral intractable foot pain, improved. Followup visit is scheduled for his pump refill in about one month. We have sent a referral to Dr. Damion Karimi for replacement of his current pump which has an CYDNEY of 7 months. By: 1420 0101 Gage Brewster MD /nt
[2019-03-20 10:49] VITALS: BP 120/74
--- NOTE | 2019-03-20 11:03 | NUR ---
Pain Clinic Assessment: 1. History of Osteoarthritis: SPINE KNEES ANKLE History of Rheumatoid Arthritis: DENIES 2. Height: 6 ft. 1 in. 185.4 cm. Weight: 280.4 lb. oz. 127.189 kg. Patient's BMI: 37.0 3. Vital Signs: BP: 120/74 Pulse: 60 Resp: 20 Temp: 02 Sat: 97 ECG Mon: 4. Pain Intensity: 5 5. Fall Risk: Dizziness: N Needs help standing or walking: N Fallen in the last 3 months: N Fall risk comments: 6. Patient on Blood Thinner: *xARELTO 7. History of Hypertension: Y 8. Opioid Therapy greater than 6 weeks: Y Opiate Contract Signed: 03/17/18 9. Risk Assessment Tool Provided: MOD RISK-6 10. Functional Assessment Tool: 11. Recreational Drug Use: Never Drug Type: Tobacco Use: Current Some Day Smoker Tobacco Type: Chewing Tobacco Amount or Packs/day: How Many Years: Alcohol Use: Yes Frequency: Monthly Quant: 1-2
== END ==
LOC: PAIN 03-13 06:54
DX: G89.4 Chronic pain syndrome (principal); M96.1 Postlaminectomy syndrome, not elsewhere classified; F11.20 Opioid dependence, uncomplicated

== ENCOUNTER → 2019-04-16 | Outpatient (CLI) | payer OTHER ==
[~2019-04-16] VITALS: Ht 182.9 cm; Wt 125.1 kg
--- NOTE | ~2019-04-16 | HPC ---
[facility] [place] [address] PAIN MANAGEMENT CONSULTATION Name: PEDRO BRANTLEY Room #: REG CL Lizzie.#: [id number] Admission: 04/16/19 Attend Phys: Gage Brewster MD Discharge: Date of : 72 Report #: [id number] THIS REPORT FOR: cc: Umair Lopez,Gage Hamilton MD ~ THIS REPORT FOR: //name// CC: UMAIR Brewster DATE OF SERVICE: 04/16/2019 Followup visit for management of chronic intractable back pain, post-laminectomy. The patient is in the clinic today for followup and refill of his intrathecal infusion pump. Over the course of my care for him, which dates back nearly 3 years, the patient and I had a congenial relationship. 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 Over the course of the last 4-6 months, his communications with me have become more troublesome. He has texted me frequently on my phone for medical issues without contacting our office and has used my phone as a primary way of communicating with me. If not noted elsewhere in my record, there was one period of a week where he sent unsolicited text messages to my phone 24 times regarding his care and these became a nuisance. I have since blocked him and our communications will remain on professional basis and this has been discussed with him both personally and in writing. He understands this restriction and the reasoning for it and I continue to consider him a friend as well as patient. I will do my best to provide for his needs. It should also be pointed out that he is one of our more complex patients. In addition to using methadone and a small dose of hydrocodone for oral for control of his sympathetic and neuropathic central pain, he has a high dose intrathecal pump, which provides hydromorphone and fentanyl allowing use of a PTM device and I have also supplemented with clonidine. Our goals are always functional and the patient is highly functional. He works at the [employer] almost every day that is open. He is a devoted family man and has a supportive nuclear family in the [place]. He is concerned today and is troubled because there is stress in his marriage. I counseled a bit with him and suggested he continue to seek out counseling for [facility] [address] [place] [address] PAIN MANAGEMENT CONSULTATION Name: PEDRO BRANTLEY Room #: REG CLSunny Alfredo#: [id number] Admission: 04/16/19 Attend Phys: Gage Brewster MD Discharge: Date of : 72 Report #: [id number] his and himself. They have 3 small children and 1 grown son. He continues tobacco and he was counseled. Today, he reports that he is doing okay. His pain level is not accelerated; it is about a 5 with his current regimen. PHYSICAL EXAMINATION: GENERAL: He is 6 feet tall, BMI of 37.4, blood pressure 143/94, pulse is 68, respirations 16, O2 sat 99. He is dressed in his usual short pants and long socks despite the cold weather. He can move independently and walks with a broad-based waddling gait. CHEST: Clear. CARDIAC: Rhythm is regular. EXTREMITIES: Scar across his low back are tender as well as his lumbosacral segment. Bilateral straight leg raising is performed without too much discomfort today. IMPRESSION: 1. Post-laminectomy syndrome with severe chronic neuropathic and central pain. 2. Management of high risk medications under terms of written opioid agreement. He is currently on schedule. We will monitor his medicines carefully. He is seen at regular intervals by myself and our advanced nurse practitioner, Veronica Shafer. 3. Opioid use disorder. History of difficulty with medication. He did present with destroyed medicines from a washer. We verified this and destroyed it and gave him a small replacement prescription, but we will continue to monitor for this behavior. 4. Management of intrathecal infusion pump with refill and reprogramming. PROCEDURE: Skin was prepped with ChloraPrep and anesthetized. A 22-gauge non-coring needle advanced in the pump. Old medication removed and discarded. Pump was refilled with his usual combination of hydromorphone, fentanyl and clonidine. Reprogramming session performed including the use of a PTM. His next refill is scheduled for 06/02/2019. He in the last 6 months of his E.R.I. He has an appointment to see Dr. Karimi to schedule a replacement pump. Medications will be renewed for refill on 05/01/2019. By: [id number] Gage Brewster MD /nt
[2019-04-16 10:43] VITALS: BP 143/94
--- NOTE | 2019-04-16 10:53 | NUR ---
Pain Clinic Assessment: 1. History of Osteoarthritis: SPINE KNEES ANKLE History of Rheumatoid Arthritis: DENIES 2. Height: 6 ft. 0 in. 182.9 cm. Weight: 275.8 lb. oz. 125.102 kg. Patient's BMI: 37.4 3. Vital Signs: BP: 143/94 Pulse: 68 Resp: 16 Temp: 02 Sat: 99 ECG Mon: 4. Pain Intensity: 5 5. Fall Risk: Dizziness: N Needs help standing or walking: N Fallen in the last 3 months: N Fall risk comments: 6. Patient on Blood Thinner: *xARELTO 7. History of Hypertension: Y 8. Opioid Therapy greater than 6 weeks: Y Opiate Contract Signed: 03/17/18 9. Risk Assessment Tool Provided: MOD RISK-6 10. Functional Assessment Tool: / 11. Recreational Drug Use: Never Drug Type: Tobacco Use: Former Smoker Tobacco Type: Amount or Packs/day: How Many Years: Alcohol Use: Yes Frequency: Special Occasions Quant:
== END | disposition home or self-care (01) ==
LOC: PAIN 06:55
DX: Z45.1 Encounter for adjustment and management of infusion pump (principal); M54.9 Dorsalgia, unspecified; G89.29 Other chronic pain; M96.1 Postlaminectomy syndrome, not elsewhere classified; G62.9 Polyneuropathy, unspecified; Z98.890 Other specified postprocedural states; Z79.899 Other long term (current) drug therapy; Z79.891 Long term (current) use of opiate analgesic

== ENCOUNTER → 2019-05-28 | Outpatient (CLI) | payer OTHER ==
[~2019-05-28] VITALS: Ht 185.4 cm; Wt 130.2 kg
--- NOTE | ~2019-05-28 | HPC ---
[facility] [address] [address] PAIN MANAGEMENT CONSULTATION Name: PEDRO BRANTLEY Room #: REG [facility] Kaitlyn.#: [id number] Admission: 05/28/19 Attend Phys: Gage Brewster MD Discharge: Date of : 72 Report #: [id number] THIS REPORT FOR: cc: Umair Lopez,Gage Hamilton MD ~ CC: UMAIR Brewster DATE OF SERVICE: 05/28/2019 The patient returns to pain clinic today for a wound check and also to evaluate his intrathecal infusion. He is doing well. He is currently receiving hydromorphone, clonidine and fentanyl and a continuous infusion through his 40 mL pump. He has medications to carry him through until August. In addition, he is on methadone 5 mg 2 tablets 3 times a day for a total of 30 mg a day. This has worked effectively for him in controlling his pain and he has a small amount of hydrocodone provided every few months to also allow him something for breakthrough. He does not use it on a daily basis. He is on high dose gabapentin continued by Dr. Lopez. 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 Today, we had an opportunity to discuss what might happen if there was an interruption of supply of his medicines. I discussed withdrawal with him, how we would go through it and what might occur at the other end. I think it is highly unlikely that this will occur, but we discussed the possibility given the uncertain times we live in. PHYSICAL EXAMINATION: GENERAL: He looks good. He is upbeat, positive. BMI is 37.9. VITAL SIGNS: Blood pressure 124/83, heart rate 73, respirations 18, O2 sat 97, pain intensity 5-6/10. MUSCULOSKELETAL: Moves independently and walks with antalgic features. Examination of the spine reveals multiple scars from previous surgery, pain with movements. Pump is in the left lower back and is nontender. It is healing nicely with no signs of infection. IMPRESSION: 1. Chronic back pain, post-laminectomy syndrome. 2. Chronic intractable pain, with opioid management and intrathecal pump under opioid agreement. Terms of his opioid agreement were reviewed. His medications [address] [address] PAIN MANAGEMENT CONSULTATION Name: PEDRO BRANTLEY Room #: REG CL Juni#: [id number] Admission: 05/28/19 Attend Phys: Gage Brewster MD Discharge: Date of : 72 Report #: [id number] were renewed with release dates to provide a small buffer. I confirmed his use of medication on the [facility] website and there are no unexpected entries. 3. Followup visit planned in August. By: [id number] Gage Brewster MD /zen
[2019-05-28 09:49] VITALS: BP 124/83
--- NOTE | 2019-05-28 10:28 | NUR ---
Pain Clinic Assessment: 1. History of Osteoarthritis: SPINE KNEES ANKLE History of Rheumatoid Arthritis: DENIES 2. Height: 6 ft. 1 in. 185.4 cm. Weight: 287.0 lb. oz. 130.183 kg. Patient's BMI: 37.9 3. Vital Signs: BP: 124/83 Pulse: 73 Resp: 18 Temp: 02 Sat: 97 ECG Mon: 4. Pain Intensity: 5-6 5. Fall Risk: Dizziness: N Needs help standing or walking: N Fallen in the last 3 months: N Fall risk comments: 6. Patient on Blood Thinner: XARELTO 7. History of Hypertension: Y 8. Opioid Therapy greater than 6 weeks: Y Opiate Contract Signed: 03/17/18 9. Risk Assessment Tool Provided: MOD RISK-6 10. Functional Assessment Tool: 11. Recreational Drug Use: Never Drug Type: Tobacco Use: Former Smoker Tobacco Type: Amount or Packs/day: How Many Years: Alcohol Use: Yes Frequency: Quant:
== END ==
LOC: PAIN 06:42
DX: G89.29 Other chronic pain (principal); M96.1 Postlaminectomy syndrome, not elsewhere classified

== ENCOUNTER → 2019-08-18 | Outpatient (CLI) | payer OTHER ==
[~2019-08-18] VITALS: Ht 185.4 cm; Wt 127.4 kg
[2019-08-18 10:05] VITALS: BP 121/71
--- NOTE | 2019-08-18 10:20 | NUR ---
Pain Clinic Assessment: 1. History of Osteoarthritis: SPINE KNEES ANKLE History of Rheumatoid Arthritis: DENIES 2. Height: 6 ft. 1 in. 185.4 cm. Weight: 280.8 lb. oz. 127.370 kg. Patient's BMI: 37.1 3. Vital Signs: BP: 121/71 Pulse: 87 Resp: 20 Temp: 02 Sat: 97 ECG Mon: 4. Pain Intensity: 6-8 5. Fall Risk: Dizziness: N Needs help standing or walking: N Fallen in the last 3 months: N Fall risk comments: 6. Patient on Blood Thinner: XARELTO 7. History of Hypertension: Y 8. Opioid Therapy greater than 6 weeks: Y Opiate Contract Signed: 03/17/18 9. Risk Assessment Tool Provided: MOD RISK-6 10. Functional Assessment Tool: 11. Recreational Drug Use: Never Drug Type: Tobacco Use: Former Smoker Tobacco Type: Amount or Packs/day: How Many Years: Alcohol Use: Yes Frequency: Special Occasions Quant:
--- NOTE | 2019-08-27 12:16 | HPC ---
[facility] [address] [address] PAIN MANAGEMENT CONSULTATION Name: PEDRO BRANTLEY Room #: REG CL M..#: [id number] Admission: 08/18/19 Attend Phys: Gage Brewster MD Discharge: Date of : 72 Report #: [id number] THIS REPORT FOR: cc: Umair Lopez,Gage Hamilton MD ~ CC: Umair Brewster DATE OF SERVICE: 08/18/2019 Followup visit for management of chronic intractable back pain, post-laminectomy syndrome, refill of intrathecal infusion pump, management of high-risk opioid medications and polypharmacy under terms of written opioid agreement. The patient returns to pain clinic today for refill of his intrathecal infusion pump. I had had several opportunities to communicate with the patient over the course of the last month or two. 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 He is working 6 days a week. Despite this hard work, he seems to be doing well. He is positive today, weibeat, says that he is doing alright. Other times when he has tried to communicate with me by text or by phone, he is at the end of his rope and has had a long difficult day. Usually if he rests, he is able to get back on his routine. His intrathecal pump is infusing a combination of hydromorphone, clonidine and fentanyl. Hydromorphone is at 6.2, clonidine 500, fentanyl 253. He also has a PTM device, which he can activate up to 6 times a day, which increases his dose by 50%. Oral medications remain unchanged. He is on methadone 30 mg daily, also takes hydrocodone 1-2 tablets as a breakthrough medicine. They work differently. The short-acting hydrocodone is not over utilized. 60 tablets is enough to generally last for an entire month. He is also on gabapentin, tizanidine. High tolerance has been discussed throughout his chart. It is important to note that medications have made a big difference in his current pain control and his ability to function and work. He is active with his family, active with his work, does not show signs of misuse or abuse at this time. We have had multiple conversations about proper medication use. He carefully safeguards his medication. I have reviewed the prescription drug monitoring program information and there are no unexpected entries, and we have performed urine drug screens in the [place] [address] PAIN MANAGEMENT CONSULTATION Name: PEDRO BRANTLEY Room #: REG [facility].#: [id number] Admission: 08/18/19 Attend Phys: Gage Brewster MD Discharge: Date of : 72 Report #: [id number] PHYSICAL EXAMINATION: GENERAL: A pleasant 48-year-old gentleman who moves independently from sitting to standing position. His gait is waddling. CHEST: Clear. CARDIAC: Rhythm is regular. MUSCULOSKELETAL: Tenderness across the lumbosacral segment. Positive straight leg raising. He has mild 1+ edema in the lower extremities. IMPRESSION: 1. Post-laminectomy syndrome with radiculopathy and central pain. 2. Opioid use disorder with history of chronic use of medication for intractable pain. We have managed his medicine very cautiously and carefully. 3. Management of intrathecal infusion pump with refill and reprogramming. PLAN: 1. I have renewed his medications electronically for the next 2 months. It is time for them to be released. 2. Refill and reprogramming. PROCEDURE: Skin was prepped with ChloraPrep. A 22-gauge non-coring needle advanced in the pump. Old medication removed and discarded. Pump was refilled with a combination of clonidine and fentanyl, hydromorphone. The pump was then reprogrammed to provide the same medication as before. There were no changes. Programming was checked, copy given to the patient and we have him scheduled for his next pump refill in approximately 60 days. <ELECTRONICALLY SIGNED> By: Gage Brewster MD 08/27/19 1216 [id number] Gage Brewster MD /nt
== END | disposition home or self-care (01) ==
LOC: PAIN 09:55
PROVIDERS: ATTEND Anesthesiology Pain Medicine
DX: Z45.1 Encounter for adjustment and management of infusion pump (principal); M96.1 Postlaminectomy syndrome, not elsewhere classified; G89.29 Other chronic pain; M54.9 Dorsalgia, unspecified; Z98.890 Other specified postprocedural states; Z79.899 Other long term (current) drug therapy; Z79.891 Long term (current) use of opiate analgesic; Z87.891 Personal history of nicotine dependence

== ENCOUNTER → 2019-09-17 | Outpatient (CLI) | payer OTHER ==
[~2019-09-17] VITALS: Ht 185.4 cm; Wt 125.3 kg
[~2019-09-17] MED LIST changes: +ZANAFLEX4 M2 PO
[2019-09-17 14:47] VITALS: BP 140/78
--- NOTE | 2019-09-17 14:56 | NUR ---
Pain Clinic Assessment: 1. History of Osteoarthritis: SPINE KNEES ANKLE History of Rheumatoid Arthritis: DENIES 2. Height: 6 ft. 1 in. 185.4 cm. Weight: 276.2 lb. oz. 125.284 kg. Patient's BMI: 36.4 3. Vital Signs: BP: 140/78 Pulse: 55 Resp: 20 Temp: 02 Sat: 97 ECG Mon: 4. Pain Intensity: 5-6 5. Fall Risk: Dizziness: N Needs help standing or walking: N Fallen in the last 3 months: N Fall risk comments: 6. Patient on Blood Thinner: XARELTO 7. History of Hypertension: Y 8. Opioid Therapy greater than 6 weeks: Y Opiate Contract Signed: 03/17/18 9. Risk Assessment Tool Provided: MOD RISK-6 10. Functional Assessment Tool: 11. Recreational Drug Use: Never Drug Type: Tobacco Use: Former Smoker Tobacco Type: Amount or Packs/day: How Many Years: Alcohol Use: Yes Frequency: Special Occasions Quant: 1
--- NOTE | 2019-09-18 08:31 | HPC ---
[facility] [address] [address] PAIN MANAGEMENT CONSULTATION Name: PEDRO BRANTLEY Room #: REG [facility].#: [id number] Admission: 09/17/19 Attend Phys: Veronica Shafer Discharge: Date of : 72 Report #: [id number] THIS REPORT FOR: cc: Umair Lopez Michael J. DO Hocker, Amanda CNS ~ CC: Veronica Brewster MD DATE OF SERVICE: 09/17/2019 CHIEF COMPLAINT: Chronic intractable pain, post-laminectomy syndrome. HISTORY OF PRESENT ILLNESS: This is a 48-year-old gentleman who returns to the pain clinic today for refill of his opioid medications that he takes along with his intrathecal pump. Dr. Brewster does manage his pump, though he is not needing that filled today. It is due to be filled by December 02 due to his PTM device. The patient does state that his pain score is a 5-6/10 today stating it is located in his lower back, bilateral legs and hips. It is a dull, numbness that is occasionally sharp and stabbing at times, it is worse when he is walking. He is quite active at his job at [employer], does require him to lift things and does work quite hard that does increase his pain. He feels that when he gets home and is able to prop his legs up and take his medication his pain is decreased. He denies problems with constipation as a result of his medications. According to the prescription monitoring system, the patient recently filled his methadone this week, but he is due for his hydrocodone refill. We are no longer writing his gabapentin or his tizanidine. We are only filling his opioid medications. Today, we will attempt to give him enough medications to last until his intrathecal pump refill at the end of November. The patient verbalizes this. He is thankful not to have to come in another time just for medications. ALLERGIES: No known drug allergies. CURRENT LIST OF MEDICATIONS: Hydrocodone 10/325 b.i.d., Xarelto, Cymbalta, gabapentin, losartan, clonidine, omeprazole, tizanidine, methadone 10 mg 3 times a day. PQRS: 1. He has history of osteoarthritis in his knees, spine and ankles. Denies rheumatoid arthritis. 2. Height is 6 feet 1. Weight is 276, BMI is 36. 3. Vital signs 140/78, pulse is 55, respirations 20, oxygen sat is 97. 4. Pain score is 5-6[place] [address] PAIN MANAGEMENT CONSULTATION Name: PEDRO BRANTLEY Room #: REG [facility].#: [id number] Admission: 09/17/19 Attend Phys: Veronica Shafer Discharge: Date of : 72 Report #: [id number] 5. Denies dizziness, does not need help walking or standing, has not fallen in the last 3 months. The patient is on Xarelto as well as medicine for hypertension. Opioid therapy is greater than 6 weeks; therefore, an opioid signed contract is on the chart. Risk assessment is moderate. Functional assessment is 30/70. 6. Recreational drug use, he denies he is a former smoker and does drink alcohol. PHYSICAL EXAMINATION: GENERAL: This is alert and orientated 48-year-old gentleman who appears his stated age, placing his current pain score at 5-6/10. HEENT: Normocephalic, atraumatic. He is wearing a mask today. MUSCULOSKELETAL: He has pain in the lumbosacral region of his spine that does radiate down his legs. He moves independently from sitting to standing position. He has a waddling antalgic gait. His lower extremities strength is 5/5 in all major muscle groups with good sensation, though he does have neuropathy in his feet and 1+ edema in his lower extremities. IMPRESSION: 1. Post-laminectomy syndrome with radicular pain. 2. Chronic intractable pain. 3. Post-laminectomy syndrome. 4. Management of intrathecal infusion pump. 5. Management of high risk opioid medications. PLAN: 1. We discussed treatment options with the patient today and explained to the patient that we will provide him enough medications to reach to his next opioid intrathecal pump refill, which according to his PTM is December 02. He recently filled his methadone this week; therefore, a script is not needed until October 11 and then again November 08. This will last him the entire time. Scripts were written for 180 tablets of 5 mg. 2. The patient is in need of his hydrocodone 10/[address] We will have Dr. Gage Brewster send electronically #60 pills for today, 4-week and 8-week release. This will again get him to his intrathecal pump refill at the end to November. 3. We are no longer writing his gabapentin or his tizanidine. He states that Umair Lopez write these medicines for him. 4. The patient is seen with Dr. Brewster today who collaborated care. The patient will return next for his pump refill. <ELECTRONICALLY SIGNED> By: Veronica Shafer 09/18/19 0831 1554 Zhou Shafer /zen
== END ==
LOC: PAIN 08-17 07:10
PROVIDERS: ATTEND Clinical Nurse Specialist Adult Health
DX: M96.1 Postlaminectomy syndrome, not elsewhere classified (principal); M17.0 Bilateral primary osteoarthritis of knee; M19.072 Primary osteoarthritis, left ankle and foot; M19.071 Primary osteoarthritis, right ankle and foot; Z79.899 Other long term (current) drug therapy; Z79.891 Long term (current) use of opiate analgesic

== ENCOUNTER → 2019-12-10 | Outpatient (CLI) | payer OTHER ==
[~2019-12-10] VITALS: Ht 185.4 cm; Wt 127.6 kg
--- NOTE | ~2019-12-10 | HPC ---
[facility] [place] [address] PAIN MANAGEMENT CONSULTATION Name: PEDRO BRANTLEY Room #: REG [facility]#: [id number] Admission: 12/10/19 Attend Phys: Gage Brewster MD Discharge: Date of : 72 Report #: [id number] THIS REPORT FOR: cc: Umair Lopez,Gage Hamilton MD ~ CC: UMAIR Brewster DATE OF SERVICE: 12/10/2019 Followup visit for chronic intractable pain. The patient is a longstanding patient who is here for complex pain medication management. I manage both his oral opioids as well as his intrathecal medications, which include a combination of medications. He is on relatively stable doses. 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 When I asked him how many days, he said 7. 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 The patient has always been very responsible to his family business to his own detriment at times pushing himself so hard that his pain is worse. We talked again today about planning, pacing, prioritizing. He should be in a place where he can delegate some of the work that he does. 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 He is nonstop every time I have gone into their business. He describes his pain as diffuse, mostly in the low back, but he has some radicular pain into the right leg as well. He has numbness and tingling. He denies weakness. Although, he does get tired being on his feet all day long. In addition to his terrible spine condition, he also has diffuse osteoarthritis. The degenerative conditions of his ankles have been documented in this record. He has severe deformities of both feet and osteoarthritis of tibiotalar and subtalar joints on both feet as well as in the metatarsals. We talked about footwear and how this can be helpful for both his lower extremities and his back. MEDICATIONS: Include methadone 10 mg 3 times daily for a total of 30, hydrocodone 10/325 taken twice a day for breakthrough pain. His intrathecal pump provides combination opioid therapy as well and he is on an infusion continuous of hydromorphone, clonidine and fentanyl, which is helpful when he [address] [address] PAIN MANAGEMENT CONSULTATION Name: PEDRO BRANTLEY Room #: REG [facility].#: [id number] Admission: 12/10/19 Attend Phys: Gage Brewster MD Discharge: Date of : 72 Report #: [id number] uses his PTM device to provide additional boluses up to 6 times throughout the day. I slightly increased his baseline for him today. Programming information described below. PHYSICAL EXAMINATION: GENERAL: He is pleasant, alert and oriented. No signs of overmedication. He is conversant. Memory is good. VITAL SIGNS: Blood pressure is 167/104, heart rate 67, respirations 16, O2 sat 100. He is 6 feet 1 inches with a BMI of 37.1. This is up slightly from last visit. Pain intensity is 8-9/10. CARDIAC: Rhythm is regular. CHEST: Clear. MUSCULOSKELETAL: Examination of the spine reveals extensive scarring from prior surgery. Tenderness and decreased range of motion. Straight leg raising is positive on the left and worse on the right. He has a bit of a broad-based gait, which I described in the past is waddling. Strength is adequate. He complains of hypersensitivity in his feet and lower extremities today. Normal sensation. IMPRESSION: 1. Post-laminectomy syndrome with radicular pain. 2. Management of intrathecal infusion pump. 3. Management of high risk opioid medications. 4. Hypertension. 5. Morbid obesity. PLAN: I reviewed his oral medications for him today, 4 and 8 weeks. This will take him nearly to his next pump refill, which is in early March. He averages about 100-120 days between refills depending on his PTM use. Refill and reprogramming session was performed. PROCECDURE: Skin prepped with ChloraPrep. A 22-gauge non-coring needle advanced in pump. Old medication removed and discarded. Pump refilled and reprogrammed and confirmed by myself and the nurse. Daily doses at maximum will be 6.4 mg of hydromorphone, 523 mcg of clonidine, 261 mcg of fentanyl. Next refill is scheduled before 03/19/2020. Followup visit planned if necessary for oral medication management. I did review the prescription drug monitoring program information and there are no unexpected entries. Urine drug screens will be performed at my discretion. We stressed the importance of safeguarding these potent and dangerous [facility] [address] [place] [address] PAIN MANAGEMENT CONSULTATION Name: PEDRO BRANTLEY [id number] Admission: 12/10/19 Attend Phys: Gage Brewster MD Discharge: Date of : 72 Report #: [id number] medications if they are out of his control. He has agreed to all of those points underneath his signed opioid agreement. By: [id number] Gage Brewster MD /nt
[2019-12-10 09:06] VITALS: BP 167/104
--- NOTE | 2019-12-10 09:09 | NUR ---
Pain Clinic Assessment: 1. History of Osteoarthritis: SPINE KNEES ANKLE History of Rheumatoid Arthritis: DENIES 2. Height: 6 ft. 1 in. 185.4 cm. Weight: 281.2 lb. oz. 127.552 kg. Patient's BMI: 37.1 3. Vital Signs: BP: 167/104 Pulse: 67 Resp: 18 Temp: 02 Sat: 100 ECG Mon: 4. Pain Intensity: 8-9 5. Fall Risk: Dizziness: N Needs help standing or walking: N Fallen in the last 3 months: N Fall risk comments: 6. Patient on Blood Thinner: XARELTO 7. History of Hypertension: Y 8. Opioid Therapy greater than 6 weeks: Y Opiate Contract Signed: 03/17/18 9. Risk Assessment Tool Provided: MOD RISK-6 10. Functional Assessment Tool: 11. Recreational Drug Use: Never Drug Type: Tobacco Use: Former Smoker Tobacco Type: Amount or Packs/day: How Many Years: Alcohol Use: Yes Frequency: Quant:
== END | disposition home or self-care (01) ==
LOC: RAD 06:55 → PAIN 06:55
PROVIDERS: ATTEND Anesthesiology Pain Medicine
DX: Z45.1 Encounter for adjustment and management of infusion pump (principal); G89.29 Other chronic pain; M96.1 Postlaminectomy syndrome, not elsewhere classified; M47.816 Spondylosis without myelopathy or radiculopathy, lumbar region; I10 Essential (primary) hypertension; E66.01 Morbid (severe) obesity due to excess calories; Z98.890 Other specified postprocedural states; Z79.899 Other long term (current) drug therapy; Z79.891 Long term (current) use of opiate analgesic; Z68.37 Body mass index [BMI] 37.0-37.9, adult

== ENCOUNTER → 2020-04-21 | Outpatient (CLI) | payer OTHER ==
[~2020-04-21] VITALS: Ht 182.9 cm; Wt 123.7 kg
[2020-04-21 15:10] VITALS: BP 149/92
--- NOTE | 2020-04-21 15:59 | NUR ---
Pain Clinic Assessment: 1. History of Osteoarthritis: SPINE KNEES ANKLE History of Rheumatoid Arthritis: DENIES 2. Height: 6 ft. 0 in. 182.9 cm. Weight: 272.8 lb. oz. 123.742 kg. Patient's BMI: 37.0 3. Vital Signs: BP: 149/92 Pulse: 81 Resp: 20 Temp: 02 Sat: 100 ECG Mon: 4. Pain Intensity: 7 5. Fall Risk: Dizziness: N Needs help standing or walking: Y Fallen in the last 3 months: Y Fall risk comments: 6. Patient on Blood Thinner: XARELTO 7. History of Hypertension: Y 8. Opioid Therapy greater than 6 weeks: Y Opiate Contract Signed: 03/17/18 9. Risk Assessment Tool Provided: MOD RISK-6 10. Functional Assessment Tool: 11. Recreational Drug Use: Never Drug Type: Tobacco Use: Current Every Day Smoker Tobacco Type: Chewing Tobacco Amount or Packs/day: How Many Years: Alcohol Use: Yes Frequency: Special Occasions Quant: 1-2/beer
== END | disposition home or self-care (01) ==
LOC: PAIN 04-04 06:46
PROVIDERS: ATTEND Anesthesiology Pain Medicine
DX: Z45.1 Encounter for adjustment and management of infusion pump (principal); G89.4 Chronic pain syndrome; M96.1 Postlaminectomy syndrome, not elsewhere classified; M54.17 Radiculopathy, lumbosacral region; I10 Essential (primary) hypertension; M19.90 Unspecified osteoarthritis, unspecified site; E66.01 Morbid (severe) obesity due to excess calories; F17.210 Nicotine dependence, cigarettes, uncomplicated; Z98.890 Other specified postprocedural states; Z79.899 Other long term (current) drug therapy; Z79.891 Long term (current) use of opiate analgesic; Z68.37 Body mass index [BMI] 37.0-37.9, adult

== ENCOUNTER → 2020-07-18 | Outpatient (CLI) | payer OTHER ==
[~2020-07-18] VITALS: Ht 182.9 cm; Wt 118.8 kg
[2020-07-18 11:15] VITALS: BP 130/77
--- NOTE | 2020-07-18 11:20 | NUR ---
Pain Clinic Assessment: 1. History of Osteoarthritis: SPINE KNEES ANKLE History of Rheumatoid Arthritis: DENIES 2. Height: 6 ft. 0 in. 182.9 cm. Weight: 262.0 lb. oz. 118.843 kg. Patient's BMI: 35.5 3. Vital Signs: BP: 130/77 Pulse: 102 Resp: 20 Temp: 02 Sat: 96 ECG Mon: 4. Pain Intensity: 9 5. Fall Risk: Dizziness: N Needs help standing or walking: N Fallen in the last 3 months: N Fall risk comments: 6. Patient on Blood Thinner: XARELTO 7. History of Hypertension: Y 8. Opioid Therapy greater than 6 weeks: Y Opiate Contract Signed: 03/17/18 9. Risk Assessment Tool Provided: MOD RISK-6 10. Functional Assessment Tool: 11. Recreational Drug Use: Never Drug Type: Tobacco Use: Former Smoker Tobacco Type: Amount or Packs/day: How Many Years: Alcohol Use: Yes Frequency: Weekly Quant: FEW
== END ==
LOC: PAIN 07:19
PROVIDERS: ATTEND Clinical Nurse Specialist Adult Health
DX: M47.26 Other spondylosis with radiculopathy, lumbar region (principal); R10.2 Pelvic and perineal pain; M46.1 Sacroiliitis, not elsewhere classified; M41.86 Other forms of scoliosis, lumbar region; M16.12 Unilateral primary osteoarthritis, left hip; M25.852 Other specified joint disorders, left hip; M25.851 Other specified joint disorders, right hip; M43.8X4 Other specified deforming dorsopathies, thoracic region; M41.84 Other forms of scoliosis, thoracic region; G89.29 Other chronic pain; E66.01 Morbid (severe) obesity due to excess calories; I10 Essential (primary) hypertension; Z79.891 Long term (current) use of opiate analgesic

== ENCOUNTER → 2020-08-11 | Outpatient (CLI) | payer OTHER ==
[~2020-08-11] VITALS: Ht 182.9 cm; Wt 124.1 kg
[2020-08-11 10:57] VITALS: BP 117/67
--- NOTE | 2020-08-11 11:09 | NUR ---
Pain Clinic Assessment: 1. History of Osteoarthritis: SPINE KNEES ANKLE hips History of Rheumatoid Arthritis: DENIES 2. Height: 6 ft. 0 in. 182.9 cm. Weight: 273.6 lb. oz. 124.104 kg. Patient's BMI: 37.1 3. Vital Signs: BP: 117/67 Pulse: 72 Resp: 20 Temp: 02 Sat: 97 ECG Mon: 4. Pain Intensity: 8 5. Fall Risk: Dizziness: N Needs help standing or walking: Y Fallen in the last 3 months: Y Fall risk comments: 6. Patient on Blood Thinner: XARELTO 7. History of Hypertension: Y 8. Opioid Therapy greater than 6 weeks: Y Opiate Contract Signed: 03/17/18 9. Risk Assessment Tool Provided: MOD RISK-6 10. Functional Assessment Tool: 11. Recreational Drug Use: Never Drug Type: Tobacco Use: Former Smoker Tobacco Type: Amount or Packs/day: How Many Years: Alcohol Use: Yes Frequency: Special Occasions Quant: 1-2
== END | disposition home or self-care (01) ==
LOC: PAIN 07:01
PROVIDERS: ATTEND Clinical Nurse Specialist Adult Health
DX: Z45.1 Encounter for adjustment and management of infusion pump (principal); M96.1 Postlaminectomy syndrome, not elsewhere classified; G89.29 Other chronic pain; I10 Essential (primary) hypertension; M19.90 Unspecified osteoarthritis, unspecified site; Z98.890 Other specified postprocedural states; Z79.899 Other long term (current) drug therapy; Z87.891 Personal history of nicotine dependence; Z79.01 Long term (current) use of anticoagulants; Z79.891 Long term (current) use of opiate analgesic

== ENCOUNTER → 2020-11-10 | Outpatient (CLI) | payer OTHER ==
[~2020-11-10] VITALS: Ht 182.9 cm; Wt 120.2 kg
[2020-11-10 11:16] VITALS: BP 132/87
--- NOTE | 2020-11-10 11:22 | NUR ---
Pain Clinic Assessment: 1. History of Osteoarthritis: SPINE KNEES ANKLE hips History of Rheumatoid Arthritis: DENIES 2. Height: 6 ft. 0 in. 182.9 cm. Weight: 265.0 lb. oz. 120.204 kg. Patient's BMI: 35.9 3. Vital Signs: BP: 132/87 Pulse: 82 Resp: 16 Temp: 02 Sat: 98 ECG Mon: 4. Pain Intensity: 8-9 5. Fall Risk: Dizziness: N Needs help standing or walking: N Fallen in the last 3 months: N Fall risk comments: 6. Patient on Blood Thinner: XARELTO 7. History of Hypertension: Y 8. Opioid Therapy greater than 6 weeks: Y Opiate Contract Signed: 03/17/18 9. Risk Assessment Tool Provided: MOD RISK-6 10. Functional Assessment Tool: 11. Recreational Drug Use: Never Drug Type: Tobacco Use: Former Smoker Tobacco Type: Amount or Packs/day: How Many Years: Alcohol Use: Yes Frequency: Quant:
== END | disposition home or self-care (01) ==
LOC: PAIN 11-07 09:13
PROVIDERS: ATTEND Anesthesiology Pain Medicine
DX: Z45.1 Encounter for adjustment and management of infusion pump (principal); M96.1 Postlaminectomy syndrome, not elsewhere classified; M16.12 Unilateral primary osteoarthritis, left hip; G89.4 Chronic pain syndrome; F32.9 Major depressive disorder, single episode, unspecified; E66.9 Obesity, unspecified; Z98.890 Other specified postprocedural states; Z79.899 Other long term (current) drug therapy; Z79.891 Long term (current) use of opiate analgesic; Z79.01 Long term (current) use of anticoagulants; Z68.35 Body mass index [BMI] 35.0-35.9, adult

== ENCOUNTER → 2021-02-23 | Outpatient (CLI) | payer OTHER ==
[~2021-02-23] VITALS: Ht 182.9 cm; Wt 125.2 kg
[2021-02-23 12:38] VITALS: BP 125/96
--- NOTE | 2021-02-23 12:42 | NUR ---
Pain Clinic Assessment: 1. History of Osteoarthritis: SPINE KNEES ANKLE hips History of Rheumatoid Arthritis: DENIES 2. Height: 6 ft. 0 in. 182.9 cm. Weight: 276.0 lb. oz. 125.193 kg. Patient's BMI: 37.4 3. Vital Signs: BP: 125/96 Pulse: 88 Resp: 18 Temp: 02 Sat: 97 ECG Mon: 4. Pain Intensity: 7 5. Fall Risk: Dizziness: N Needs help standing or walking: N Fallen in the last 3 months: N Fall risk comments: 6. Patient on Blood Thinner: XARELTO 7. History of Hypertension: Y 8. Opioid Therapy greater than 6 weeks: Y Opiate Contract Signed: 03/17/18 9. Risk Assessment Tool Provided: MOD RISK-6 10. Functional Assessment Tool: 11. Recreational Drug Use: Never Drug Type: Tobacco Use: Former Smoker Tobacco Type: Amount or Packs/day: How Many Years: Alcohol Use: Yes Frequency: Quant:
== END | disposition home or self-care (01) ==
LOC: PAIN 02-20 08:41
PROVIDERS: ATTEND Anesthesiology Pain Medicine
DX: Z45.1 Encounter for adjustment and management of infusion pump (principal); M96.1 Postlaminectomy syndrome, not elsewhere classified; G89.4 Chronic pain syndrome; M54.16 Radiculopathy, lumbar region; M16.12 Unilateral primary osteoarthritis, left hip; I10 Essential (primary) hypertension; M19.90 Unspecified osteoarthritis, unspecified site; Z98.890 Other specified postprocedural states; Z79.891 Long term (current) use of opiate analgesic; Z79.899 Other long term (current) drug therapy; Z79.01 Long term (current) use of anticoagulants

== ENCOUNTER → 2021-04-24 | Outpatient (CLI) | payer OTHER ==
[~2021-04-24] VITALS: Ht 182.9 cm; Wt 124.3 kg
[2021-04-24 13:39] VITALS: BP 128/87
--- NOTE | 2021-04-24 13:49 | NUR ---
Pain Clinic Assessment: 1. History of Osteoarthritis: SPINE KNEES ANKLE hips History of Rheumatoid Arthritis: DENIES 2. Height: 6 ft. 0 in. 182.9 cm. Weight: 274.0 lb. oz. 124.286 kg. Patient's BMI: 37.2 3. Vital Signs: BP: 128/87 Pulse: 80 Resp: 20 Temp: 02 Sat: 100 ECG Mon: 4. Pain Intensity: 6-7 5. Fall Risk: Dizziness: N Needs help standing or walking: Y Fallen in the last 3 months: Y Fall risk comments: 6. Patient on Blood Thinner: XARELTO 7. History of Hypertension: Y 8. Opioid Therapy greater than 6 weeks: Y Opiate Contract Signed: 03/17/18 9. Risk Assessment Tool Provided: MOD RISK-6 10. Functional Assessment Tool: 11. Recreational Drug Use: Never Drug Type: Tobacco Use: Former Smoker Tobacco Type: Amount or Packs/day: How Many Years: Alcohol Use: Yes Frequency: Quant:
== END ==
LOC: PAIN 10:29
PROVIDERS: ATTEND Clinical Nurse Specialist Adult Health
DX: M16.12 Unilateral primary osteoarthritis, left hip (principal); G89.4 Chronic pain syndrome; M54.16 Radiculopathy, lumbar region; Z79.899 Other long term (current) drug therapy